=== PATIENT | female | born 1965 | race Caucasian/White ===

== ENCOUNTER → 2016-04-25 | Outpatient (CLI) | payer BC ==
[2016-04-25 13:37] LABS: ALBUMIN 4.1 GM/DL (3.2-5.2); ALBUMIN/GLOBULIN RATIO 1.17 (1.00-1.93); ALKALINE PHOSPHATASE 87 U/L (45-117); ALT/SGPT 158 U/L (12-78); ANION GAP 8 MEQ/L (8-16); AST/SGOT 160 U/L (15-37); BILIRUBIN,TOTAL 0.6 MG/DL (0.2-1.0); BLOOD UREA NITROGEN 14 MG/DL (7-18); CALCIUM LEVEL 9.2 MG/DL (8.5-10.1); CARBON DIOXIDE LEVEL 32 MEQ/L (21-32); CHLORIDE LEVEL 100 MEQ/L (98-107); CHOLESTEROL LEVEL 201 MG/DL (<200); CREATININE FOR GFR 0.79 MG/DL (0.55-1.02); GLOMERULAR FILTRATION RATE > 60.0 (>51); GLUCOSE, FASTING 161 MG/DL (70-105); MAGNESIUM LEVEL 2.1 MG/DL (1.8-2.4); POTASSIUM SERUM 4.7 MEQ/L (3.5-5.1); SODIUM LEVEL 140 MEQ/L (136-145); TOTAL PROTEIN 7.6 GM/DL (6.4-8.2); TRIGLYCERIDES LEVEL 541 MG/DL (<150)
== END ==
LOC: M SMT 09:56
PROVIDERS: ATTEND Nurse Practitioner Family
DX: K75.81 Nonalcoholic steatohepatitis (NASH) (principal); E11.9 Type 2 diabetes mellitus without complications; E78.2 Mixed hyperlipidemia; G47.62 Sleep related leg cramps; E55.9 Vitamin D deficiency, unspecified

== ENCOUNTER → 2016-06-29 | Outpatient (CLI) | payer BC ==
--- NOTE | 2016-06-29 11:26 | REP ---
Right upper quadrant sonography: History: Increased liver function studies. Comparison study: April 15, 2015. Findings: Scanning through the right upper quadrant of the abdomen demonstrates a normal sized, thin-walled gallbladder without evidence of stone or polyp. Common bile duct is normal measuring 1.0 cm in greatest diameter. This is unchanged from chest CT study October 29, 2015. It is also unchanged from April 04, 2015 prior sonography. No focal liver lesion is seen. There is diffuse fatty infiltration of the liver. Normal caliber aorta is seen. Liver size is normal. No pancreatic abnormality is observed. No right renal abnormality is seen. There is no evidence of ascites. The right kidney measures 10.4 x 7.5 x 4.6 cm. Impression: Mildly dilated common bile duct unchanged from prior study, otherwise negative right upper quadrant sonography. Signed by Laith Muniz MD 06/29/2016 11:18 A
== END ==
LOC: M RAD 08:53
PROVIDERS: ATTEND Nurse Practitioner Family
DX: K75.81 Nonalcoholic steatohepatitis (NASH) (principal)

== ENCOUNTER → 2016-08-22 | Outpatient (REF) | payer BC ==
[2016-08-22 11:56] LABS: ALBUMIN 4.2 GM/DL (3.2-5.2); ALBUMIN/GLOBULIN RATIO 1.08 (1.00-1.93); ALKALINE PHOSPHATASE 74 U/L (45-117); ALT/SGPT 122 U/L (12-78); ANION GAP 9 MEQ/L (8-16); AST/SGOT 134 U/L (15-37); BILIRUBIN,TOTAL 0.4 MG/DL (0.2-1.0); BLOOD UREA NITROGEN 17 MG/DL (7-18); CALCIUM LEVEL 9.4 MG/DL (8.5-10.1); CARBON DIOXIDE LEVEL 29 MEQ/L (21-32); CHLORIDE LEVEL 100 MEQ/L (98-107); CHOLESTEROL LEVEL 215 MG/DL (<200); CREATININE FOR GFR 0.81 MG/DL (0.55-1.02); GLOMERULAR FILTRATION RATE > 60.0 (>51); GLUCOSE, FASTING 177 MG/DL (70-105); POTASSIUM SERUM 4.5 MEQ/L (3.5-5.1); SODIUM LEVEL 138 MEQ/L (136-145); TOTAL PROTEIN 8.1 GM/DL (6.4-8.2); TRIGLYCERIDES LEVEL 343 MG/DL (<150)
== END ==
LOC: M SFHCLERA 09:12
PROVIDERS: ATTEND Nurse Practitioner Family
DX: E11.65 Type 2 diabetes mellitus with hyperglycemia (principal); E78.2 Mixed hyperlipidemia; E55.9 Vitamin D deficiency, unspecified

== ENCOUNTER → 2016-11-06 | Outpatient (REF) | payer BC ==
[2016-11-06 18:23] LABS: ALBUMIN 4.5 GM/DL (3.2-5.2); ALBUMIN/GLOBULIN RATIO 1.22 (1.00-1.93); ALKALINE PHOSPHATASE 80 U/L (45-117); ALT/SGPT 149 U/L (12-78); ANION GAP 8 MEQ/L (8-16); AST/SGOT 137 U/L (15-37); BILIRUBIN,TOTAL 0.5 MG/DL (0.2-1.0); BLOOD UREA NITROGEN 15 MG/DL (7-18); CALCIUM LEVEL 9.8 MG/DL (8.5-10.1); CARBON DIOXIDE LEVEL 27 MEQ/L (21-32); CHLORIDE LEVEL 102 MEQ/L (98-107); CHOLESTEROL LEVEL 230 MG/DL (<200); CREATININE FOR GFR 0.81 MG/DL (0.55-1.02); GLOMERULAR FILTRATION RATE > 60.0 (>51); GLUCOSE, FASTING 127 MG/DL (70-105); POTASSIUM SERUM 4.4 MEQ/L (3.5-5.1); SODIUM LEVEL 137 MEQ/L (136-145); TOTAL PROTEIN 8.2 GM/DL (6.4-8.2); TRIGLYCERIDES LEVEL 288 MG/DL (<150)
== END ==
LOC: M SFHCLERA 11:13
PROVIDERS: ATTEND Nurse Practitioner Family
DX: E78.2 Mixed hyperlipidemia (principal); E11.65 Type 2 diabetes mellitus with hyperglycemia; R11.0 Nausea

== ENCOUNTER → 2017-03-04 | Outpatient (CLI) | payer BC ==
[2017-03-04 19:08] LABS: ALBUMIN 4.2 GM/DL (3.2-5.2); ALBUMIN/GLOBULIN RATIO 1.14 (1.00-1.93); ALKALINE PHOSPHATASE 84 U/L (45-117); ALT/SGPT 103 U/L (12-78); ANION GAP 7 MEQ/L (8-16); AST/SGOT 93 U/L (7-37); BILIRUBIN,TOTAL 0.5 MG/DL (0.2-1.0); BLOOD UREA NITROGEN 17 MG/DL (7-18); CALCIUM LEVEL 9.5 MG/DL (8.5-10.1); CARBON DIOXIDE LEVEL 29 MEQ/L (21-32); CHLORIDE LEVEL 104 MEQ/L (98-107); GLOMERULAR FILTRATION RATE > 60.0 (>51); GLUCOSE, FASTING 176 MG/DL (70-105); MAGNESIUM LEVEL 1.6 MG/DL (1.8-2.4); POTASSIUM SERUM 4.7 MEQ/L (3.5-5.1); SODIUM LEVEL 140 MEQ/L (136-145); TOTAL PROTEIN 7.9 GM/DL (6.4-8.2)
== END ==
LOC: M WUC 09:54
PROVIDERS: ATTEND Nurse Practitioner Family
DX: E11.65 Type 2 diabetes mellitus with hyperglycemia (principal); K21.9 Gastro-esophageal reflux disease without esophagitis; E55.9 Vitamin D deficiency, unspecified

== ENCOUNTER → 2017-03-09 | Outpatient (CLI) | payer BC ==
--- NOTE | 2017-03-11 10:55 | REP ---
Clinical: Acute bronchitis . Comparison: 08/23/2015 . Technique: PA and lateral. Findings: The mediastinum and cardiac silhouette are normal. The lung galvez are clear and without acute consolidation, effusion, or pneumothorax. The skeletal structures are intact and normal. Impression: No focal consolidation. No acute cardiopulmonary process. Signed by Manuel Diaz MD 03/09/2017 03:04 P
== END ==
LOC: M WUC 14:41
PROVIDERS: ATTEND Nurse Practitioner Family
DX: J40 Bronchitis, not specified as acute or chronic (principal)

== ENCOUNTER → 2017-05-08 | Outpatient (CLI) | payer BC | LOC: M RAD 07:29 | DX: K75.81 Nonalcoholic steatohepatitis (NASH) (principal) ==

== ENCOUNTER → 2017-06-24 | Outpatient (CLI) | payer BC ==
[2017-06-24 18:25] LABS: ESTIMATED AVERAGE GLUCOSE 197 MG/DL (60-110); HEMOGLOBIN A1c 8.5 %
[2017-06-24 18:43] LABS: ALBUMIN 4.2 GM/DL (3.2-5.2); ALBUMIN/GLOBULIN RATIO 1.17 (1.00-1.93); ALKALINE PHOSPHATASE 84 U/L (45-117); ALT/SGPT 137 U/L (12-78); ANION GAP 9 MEQ/L (8-16); AST/SGOT 93 U/L (7-37); BILIRUBIN,TOTAL 0.6 MG/DL (0.2-1.0); BLOOD UREA NITROGEN 14 MG/DL (7-18); CALCIUM LEVEL 9.3 MG/DL (8.5-10.1); CARBON DIOXIDE LEVEL 27 MEQ/L (21-32); CHLORIDE LEVEL 105 MEQ/L (98-107); CHOLESTEROL LEVEL 217 MG/DL (<200); CHOLESTEROL RISK RATIO 6.027 (<5); CREATININE FOR GFR 0.75 MG/DL (0.55-1.30); GLOMERULAR FILTRATION RATE > 60.0 (>51); GLUCOSE, FASTING 113 MG/DL (70-100); HDL CHOLESTEROL 36 MG/DL (>40); LDL CHOLESTEROL 131.2 MG/DL (<100); NON-HDL-C 181 MG/DL; POTASSIUM SERUM 4.3 MEQ/L (3.5-5.1); SODIUM LEVEL 141 MEQ/L (136-145); TOTAL PROTEIN 7.8 GM/DL (6.4-8.2); TRIGLYCERIDES LEVEL 249 MG/DL (<150)
[2017-06-25 10:43] LABS: TOTAL 25(OH) VITAMIN D 39.3 NG/ML (30.0-100.0)
[2017-06-26 10:58] LABS: ALPHA FETOPROTEIN TUMOR QUANT 2.1 NG/ML (<8.1)
== END ==
LOC: M WUC 12:48
DX: K75.81 Nonalcoholic steatohepatitis (NASH) (principal); L25.9 Unspecified contact dermatitis, unspecified cause; E11.65 Type 2 diabetes mellitus with hyperglycemia

== ENCOUNTER → 2017-10-24 | Outpatient (REF) | payer BC ==
[2017-10-30 12:09] LABS: HPV LOW VOL RFLX Negative (Negative)
== END ==
LOC: M SFHCPLAZ 08:19
DX: Z12.72 Encounter for screening for malignant neoplasm of vagina (principal); Z12.11 Encounter for screening for malignant neoplasm of colon; Z12.4 Encounter for screening for malignant neoplasm of cervix; Z87.410 Personal history of cervical dysplasia
CPT/HCPCS: G0123

== ENCOUNTER → 2017-11-14 | Outpatient (CLI) | payer BC ==
[2017-11-14 09:41] LABS: ALBUMIN/GLOBULIN RATIO 1.11 (1.00-1.93); ALKALINE PHOSPHATASE 74 U/L (45-117); ALT/SGPT 36 U/L (12-78); ANION GAP 8 MEQ/L (8-16); AST/SGOT 29 U/L (7-37); BILIRUBIN,TOTAL 0.4 MG/DL (0.2-1.0); BLOOD UREA NITROGEN 14 MG/DL (7-18); CALCIUM LEVEL 9.2 MG/DL (8.5-10.1); CARBON DIOXIDE LEVEL 30 MEQ/L (21-32); CHLORIDE LEVEL 105 MEQ/L (98-107); CHOLESTEROL LEVEL 186 MG/DL (<200); CHOLESTEROL RISK RATIO 4.227 (<5); CREATININE FOR GFR 0.78 MG/DL (0.55-1.30); FREE T4 1.05 NG/DL (0.76-1.46); GLOMERULAR FILTRATION RATE > 60.0 (>51); GLUCOSE, FASTING 114 MG/DL (70-100); HDL CHOLESTEROL 44 MG/DL (>40); LDL CHOLESTEROL 111.4 MG/DL (<100); NON-HDL-C 142 MG/DL; POTASSIUM SERUM 4.5 MEQ/L (3.5-5.1); SODIUM LEVEL 143 MEQ/L (136-145); TOTAL PROTEIN 7.6 GM/DL (6.4-8.2); TRIGLYCERIDES LEVEL 153 MG/DL (<150)
[2017-11-14 09:43] LABS: CREATININE, URINE 71.5 MG/DL; MALB URINE SIEMENS 25.3 MG/L; MAU/CREAT RATIO 35.3 MCG/MG (0.0-30.0)
[2017-11-14 10:01] LABS: TOTAL 25(OH) VITAMIN D 42.9 NG/ML (30.0-100.0)
[2017-11-14 10:10] LABS: ESTIMATED AVERAGE GLUCOSE 126 MG/DL (60-110)
== END ==
LOC: M LAB 08:37
DX: E11.65 Type 2 diabetes mellitus with hyperglycemia (principal); K75.81 Nonalcoholic steatohepatitis (NASH); E78.5 Hyperlipidemia, unspecified; E55.9 Vitamin D deficiency, unspecified
CPT/HCPCS: 84443

== ENCOUNTER → 2018-01-14 | Outpatient (REF) | payer BC | LOC: M LAB REF 19:08 | DX: D22.5 Melanocytic nevi of trunk (principal) | CPT/HCPCS: 88305 ==

== ENCOUNTER → 2018-01-24 | Outpatient (CLI) | payer BC | LOC: M RAD 16:39 | DX: Z12.31 Encounter for screening mammogram for malignant neoplasm of breast (principal); N60.31 Fibrosclerosis of right breast; N60.32 Fibrosclerosis of left breast; R92.8 Other abnormal and inconclusive findings on diagnostic imaging of breast | CPT/HCPCS: 77067 ==

== ENCOUNTER → 2018-02-04 | Outpatient (CLI) | payer BC | LOC: M RAD 15:52 | DX: R92.8 Other abnormal and inconclusive findings on diagnostic imaging of breast (principal) | CPT/HCPCS: 77065 ==

== ENCOUNTER → 2018-03-24 | Outpatient (CLI) | payer BC ==
[2018-03-24 18:05] LABS: ALBUMIN 3.9 GM/DL (3.2-5.2); ALBUMIN/GLOBULIN RATIO 1.05 (1.00-1.93); ALKALINE PHOSPHATASE 80 U/L (45-117); ALT/SGPT 35 U/L (12-78); ANION GAP 9 MEQ/L (8-16); AST/SGOT 28 U/L (7-37); BILIRUBIN,TOTAL 0.3 MG/DL (0.2-1.0); BLOOD UREA NITROGEN 19 MG/DL (7-18); CALCIUM LEVEL 8.7 MG/DL (8.5-10.1); CARBON DIOXIDE LEVEL 26 MEQ/L (21-32); CHLORIDE LEVEL 107 MEQ/L (98-107); CHOLESTEROL LEVEL 190 MG/DL (<200); CHOLESTEROL RISK RATIO 5.135 (<5); CREATININE FOR GFR 0.69 MG/DL (0.55-1.30); GLOMERULAR FILTRATION RATE > 60.0 (>51); GLUCOSE, FASTING 83 MG/DL (70-100); HDL CHOLESTEROL 37 MG/DL (>40); LDL CHOLESTEROL 125 MG/DL (<100); NON-HDL-C 153 MG/DL; POTASSIUM SERUM 4.5 MEQ/L (3.5-5.1); SODIUM LEVEL 142 MEQ/L (136-145); TOTAL PROTEIN 7.6 GM/DL (6.4-8.2); TRIGLYCERIDES LEVEL 140 MG/DL (<150)
[2018-03-24 18:13] LABS: ESTIMATED AVERAGE GLUCOSE 131 MG/DL (60-110); HEMOGLOBIN A1c 6.2 %
[2018-03-24 18:22] LABS: MALB URINE SIEMENS 55.1 MG/L; MAU/CREAT RATIO 41.4 MCG/MG (0.0-30.0)
== END ==
LOC: M WUC 11:24
DX: E11.29 Type 2 diabetes mellitus with other diabetic kidney complication (principal); E78.2 Mixed hyperlipidemia; E55.9 Vitamin D deficiency, unspecified
CPT/HCPCS: 80053

== ENCOUNTER → 2018-04-22 | Outpatient (CLI) | payer BC ==
--- NOTE | 2018-04-23 04:15 | REP ---
Clinical: Cirrhosis. Comparison: 05/08/2017, 06/29/2016 Technique: Wharton scale ultrasound using curved array transducer. Findings: The liver is mildly enlarged and demonstrates increased echotexture consistent with fatty infiltration. No focal hepatic lesion identified. Main portal vein is mildly dilated at 15.7 mm diameter. Pancreas is normal in appearance and echogenicity. The gallbladder again demonstrates few septations without gallstones, wall thickening, or pericholecystic fluid. Common bile duct measures 10.6 mm maximal diameter but tapers to 6.9 mm at the head of the pancreas and is without obvious obstruction. The right kidney is normal in reniform shape without hydronephrosis and measures 12.6 x 6.8 x 5.3 cm. No ascites. Impression: 1. Hepatomegaly with hepatic steatosis. No focal hepatic lesion. 2. Mild portal vein dilatation. 3. Common bile duct again appears mildly dilated but tapers smoothly and is without evidence for obstruction. Electronically Signed by Manuel Diaz MD 04/23/2018 04:06 A
== END ==
LOC: M RAD 07:02
PROVIDERS: ATTEND Nurse Practitioner Family
DX: K74.60 Unspecified cirrhosis of liver (principal)

== ENCOUNTER → 2018-08-19 | Outpatient (REF) | payer BC ==
[2018-08-19 10:06] LABS: ALBUMIN 4.2 GM/DL (3.2-5.2); ALT/SGPT 57 U/L (12-78); BILIRUBIN,TOTAL 0.3 MG/DL (0.2-1.0); BLOOD UREA NITROGEN 16 MG/DL (7-18); CALCIUM LEVEL 8.9 MG/DL (8.5-10.1); CARBON DIOXIDE LEVEL 27 MEQ/L (21-32); CHLORIDE LEVEL 108 MEQ/L (98-107); CREATININE FOR GFR 0.92 MG/DL (0.55-1.30); GLOMERULAR FILTRATION RATE > 60.0 (>51); GLUCOSE, FASTING 145 MG/DL (70-100); POTASSIUM SERUM 4.2 MEQ/L (3.5-5.1); SODIUM LEVEL 141 MEQ/L (136-145); TOTAL PROTEIN 7.7 GM/DL (6.4-8.2)
[2018-08-19 10:46] LABS: HEMOGLOBIN A1c 6.4 %
[2018-08-19 11:01] LABS: CREATININE, URINE 75.8 MG/DL; MALB URINE SIEMENS 5.4 MG/L; MAU/CREAT RATIO 7.1 MCG/MG (0.0-30.0)
== END ==
LOC: M LAB REF 09:14
PROVIDERS: ATTEND Nurse Practitioner Family
DX: E11.29 Type 2 diabetes mellitus with other diabetic kidney complication (principal); J84.9 Interstitial pulmonary disease, unspecified; K74.60 Unspecified cirrhosis of liver

== ENCOUNTER → 2018-09-27 | Outpatient (CLI) | payer BC ==
--- NOTE | 2018-09-27 14:11 | REP ---
LOW DOSE LUNG SCREENING CT: Low dose lung screening CT exam is performed without the use of intravenous contrast in the axial plane. Comparison is made with a prior CT of the chest 10/29/2015. In the right upper lobe, on images 25 through 28, there is an ill-defined nonsolid parenchymal opacity with central lucency. Maximum diameter is 20 mm. This is probably benign and likely related to an inflammatory and/or fibrotic process. More inferiorly, in the right lower lobe, there is mild focal chronic scarring which is stable compared to the prior CT of the chest. This is seen on image 67. Another area of focal parenchymal scarring is seen in the left lower lobe on image 59, also stable. No other new abnormal nodular opacities are seen bilaterally. The heart is normal in size. There is no pleural effusion. No mediastinal contour abnormality is seen. There are degenerative changes of the spine. IMPRESSION: Lung RADS category 3 probably benign finding. In the right upper lobe, there is new ill-defined somewhat ground-glass parenchymal opacity with central lucency with a maximum diameter of 20 mm. This is likely related to an inflammatory and/or fibrotic process. Recommend followup CT in 6 months. Focal scarring in the right lower lobe and left lower lobe as discussed above is stable compared to the prior CT of 10/29/2015. Electronically Signed by Dewayne Wharton MD 09/27/2018 07:31 P
== END ==
LOC: M RAD 10:39
PROVIDERS: ATTEND Nurse Practitioner Family
DX: R91.8 Other nonspecific abnormal finding of lung field (principal); Z87.891 Personal history of nicotine dependence

== ENCOUNTER → 2018-12-13 | Outpatient (CLI) | payer BC ==
--- NOTE | 2018-12-13 09:25 | REP ---
CT chest without contrast: History: Abnormal lung field finding. Comparison chest CT studies are reviewed the most recent which is from September 27, 2018 and the most remote is dated June 29, 2008. CT findings: Preliminary digital shopper insights manager views are unremarkable. There are multiple scattered ground-glass opacities bilaterally. In the left upper lobe there is a 1 cm ground-glass opacity near the apex which it is unchanged from October 29, 2015. In the right upper lobe on page 30 of 111 in series 201 of the study there is a 22 mm ground-glass opacity with central airspace a radiolucency. This it is new when compared with 2016 prior study and may be slightly larger today compared to the September 27, 2018 study. Low grade malignancy cannot be excluded. Just posterior and inferior to this on page 33 of 111 there is a 1 cm ground-glass opacity which is visible in retrospect in September and probably on the 2015 prior study as well. There is a new 9 mm air cyst in the right middle lobe on page 57. There is a ground-glass opacity in the left lower lobe on page 59 of 111. This measures 16 mm in diameter and it is unchanged from the October 29, 2015 prior study. It was not present in 2008. It is visible in the left lower lobe on July 2009 and has increased slightly since then. There are two adjacent subcentimeter nodules in the right lower lobe on page 71 of 111. These appear to be unchanged from September 27, 2018. Lastly there is stable 3 mm nodule in the left lower lobe posterolaterally on page 80 which is unchanged from 2016. There is no evidence of hilar or mediastinal mass or adenopathy. There is some vascular calcification. No adrenal lesion is seen. No bony destructive lesion is observed. Impression: Multiple scattered ground glass opacities, two of which appear to be gradually increasing in size; right upper lobe and left lower lobe. Low grade adenocarcinoma cannot be excluded. The largest of these is in the right upper lobe 2.2 cm in greatest diameter. Electronically Signed by Laith Muniz MD 12/13/2018 03:59 P
== END ==
LOC: M RAD 07:08
PROVIDERS: ATTEND Internal Medicine Pulmonary Disease
DX: R91.8 Other nonspecific abnormal finding of lung field (principal)

== ENCOUNTER → 2019-01-04 | Outpatient (CLI) | payer BC ==
[2019-01-04 18:46] LABS: ALBUMIN 4.2 GM/DL (3.2-5.2); ALT/SGPT 63 U/L (12-78); BILIRUBIN,TOTAL 0.5 MG/DL (0.2-1.0); BLOOD UREA NITROGEN 17 MG/DL (7-18); CALCIUM LEVEL 9.3 MG/DL (8.5-10.1); CARBON DIOXIDE LEVEL 27 MEQ/L (21-32); CHLORIDE LEVEL 104 MEQ/L (98-107); CHOLESTEROL LEVEL 187 MG/DL (<200); CHOLESTEROL RISK RATIO 5.054 (<5); CREATININE FOR GFR 0.77 MG/DL (0.55-1.30); GLOMERULAR FILTRATION RATE > 60.0 (>51); GLUCOSE, FASTING 73 MG/DL (70-100); HDL CHOLESTEROL 37 MG/DL (>40); LDL CHOLESTEROL 121 MG/DL (<100); NON-HDL-C 150 MG/DL; POTASSIUM SERUM 4.3 MEQ/L (3.5-5.1); SODIUM LEVEL 140 MEQ/L (136-145); TRIGLYCERIDES LEVEL 144 MG/DL (<150)
[2019-01-04 18:59] LABS: HEMOGLOBIN A1c 5.8 %
[2019-01-04 19:13] LABS: MAU/CREAT RATIO 14.3 MCG/MG (0.0-30.0)
[2019-01-06 09:58] LABS: TOTAL 25(OH) VITAMIN D 36.4 NG/ML (30.0-100.0)
== END ==
LOC: M WUC 13:04
PROVIDERS: ATTEND Nurse Practitioner Family
DX: E11.29 Type 2 diabetes mellitus with other diabetic kidney complication (principal); E78.2 Mixed hyperlipidemia; E55.9 Vitamin D deficiency, unspecified; N18.9 Chronic kidney disease, unspecified

== ENCOUNTER → 2019-02-10 | Outpatient (REF) | payer BC | LOC: M SFHCPLAZ 10:53 | PROVIDERS: ATTEND Dermatology | DX: D49.2 Neoplasm of unspecified behavior of bone, soft tissue, and skin (principal) ==

== ENCOUNTER → 2019-04-23 | Outpatient (CLI) | payer BC ==
--- NOTE | 2019-04-23 08:12 | REP ---
Clinical: Nonalcoholic hepatic steatosis. Technique: Real time pinedo scale and color evaluation using curved array transducer. Comparison: 04/22/2018. Findings: The liver is enlarged and measures 20 cm in craniocaudal length and appears hyperechoic consistent with fatty infiltration. No focal hepatic lesion is identified. There is an area of fatty sparing adjacent to the gallbladder fossa. The main portal vein is upper limits of normal at 15 mm diameter. The pancreas is incompletely evaluated due to interposed bowel gas but visualized portions appear normal. The gallbladder is unremarkable and without gallstones, wall thickening, or pericholecystic fluid. The common bile duct is again mildly dilated to 11 mm without obvious obstructing cause. The right kidney is normal in reniform shape without hydronephrosis and measures 13.1 x 4.7 x 3.5 cm. No ascites in the visualized right upper quadrant. Impression: 1. Hepatomegaly and hepatic steatosis. 2. Mild common bile duct dilatation without obstructing cause and essentially unchanged when compared to prior examination. Electronically Signed by Manuel Diaz MD 04/23/2019 08:03 A
== END ==
LOC: M RAD 07:10
PROVIDERS: ATTEND Nurse Practitioner Family
DX: K75.81 Nonalcoholic steatohepatitis (NASH) (principal)

== ENCOUNTER → 2019-05-29 | Outpatient (CLI) | payer BC ==
--- NOTE | 2019-05-29 08:18 | REP ---
Clinical: Follow up abnormal lung findings. Technique: Axial noncontrast images from the thoracic inlet to the upper abdomen with coronal and sagittal re-formations. Comparison: 12/13/2018, 09/27/2018, 10/29/2015 Findings: The 1.4 cm cavitation with subtle surrounding ground-glass halo in the right upper lobe and small area of ground-glass opacity in the medial left lower lobe are unchanged. No new acute pulmonary parenchymal process identified. No significant adenopathy. No effusion. No pneumothorax. Tracheobronchial tree is patent. Mediastinum demonstrates relatively normal thoracic aorta, pulmonary vasculature and heart/pericardium. Thyroid gland is unremarkable. Musculoskeletal structures are intact. Impression: 1. The right upper lobe cavitary lesion with surrounding ground-glass halo remains stable through 09/27/2018, and the subtle ground-glass opacity in the left lower lobe remains stable through 10/29/2015. Findings likely represent sequelae of prior infectious process. Consider 9 - 12-month follow-up to confirm stability. Electronically Signed by Manuel Diaz MD 05/29/2019 08:09 A
== END ==
LOC: M RAD 07:31
PROVIDERS: ATTEND Internal Medicine Pulmonary Disease
DX: R91.8 Other nonspecific abnormal finding of lung field (principal)

== ENCOUNTER → 2019-10-04 | Outpatient (CLI) | payer BC ==
[2019-10-04 14:33] LABS: ALT/SGPT 57 U/L (12-78); BILIRUBIN,TOTAL 0.3 MG/DL (0.2-1.0); BLOOD UREA NITROGEN 22 MG/DL (7-18); CALCIUM LEVEL 9.2 MG/DL (8.5-10.1); CARBON DIOXIDE LEVEL 27 MEQ/L (21-32); CHLORIDE LEVEL 106 MEQ/L (98-107); CHOLESTEROL LEVEL 175 MG/DL (<200); CHOLESTEROL RISK RATIO 5.645 (<5); CREATININE FOR GFR 0.84 MG/DL (0.55-1.30); GLOMERULAR FILTRATION RATE > 60.0 (>51); GLUCOSE, FASTING 86 MG/DL (70-100); HDL CHOLESTEROL 31 MG/DL (>40); LDL CHOLESTEROL 101 MG/DL (<100); NON-HDL-C 144 MG/DL; POTASSIUM SERUM 4.7 MEQ/L (3.5-5.1); SODIUM LEVEL 142 MEQ/L (136-145); TOTAL PROTEIN 7.6 GM/DL (6.4-8.2); TRIGLYCERIDES LEVEL 217 MG/DL (<150); URIC ACID 8.7 MG/DL (2.6-6.0)
[2019-10-04 14:39] LABS: CREATININE, URINE 80.4 MG/DL; MALB URINE SIEMENS 12.7 MG/L; MAU/CREAT RATIO 15.7 MCG/MG (0.0-30.0)
[2019-10-04 14:52] LABS: HEMOGLOBIN A1c 5.8 %
[2019-10-06 10:56] LABS: TOTAL 25(OH) VITAMIN D 50.2 NG/ML (30.0-100.0); VITAMIN B12 LEVEL 295 PG/ML
[2019-10-06 11:27] LABS: FOLATE 23.8 NG/ML
== END ==
LOC: M WUC 08:26
PROVIDERS: ATTEND Nurse Practitioner Family
DX: E11.29 Type 2 diabetes mellitus with other diabetic kidney complication (principal); K75.81 Nonalcoholic steatohepatitis (NASH); K21.9 Gastro-esophageal reflux disease without esophagitis; E55.9 Vitamin D deficiency, unspecified; M25.50 Pain in unspecified joint

== ENCOUNTER 2019-11-14 14:42 | Day surgery (SDC) | payer BC ==
[~2019-11-14 14:42] MED LIST: LIDOCAINE 2% 100MG/5ML SDV (FOR ANES.) As Ordered ONE; fentaNYL 100 MCG/2 ML INJECTION (J3010) As Ordered ONE; propofoL 200 MG/20 ML VIAL As Ordered ONE
[2019-11-14] MEDS ORDERED: propofoL 200 MG/20 ML VIAL As Ordered ONE (15:59)
[2019-11-14] MEDS ORDERED: PHENYLephrine HCL 500 MCG/5 ML (100MCG/ML) SYRINGE (J2370) As Ordered ONE (16:04)
--- NOTE | 2019-12-24 11:27 | ROOR ---
Patient Name: Sandy Hoyt Procedure Date: 11/14/2019 2:03 PM Date of : 1965 Age: 54 Room: [facility] Gender: Female Note Status: Finalized Procedure: Colonoscopy Indications: High risk colon cancer surveillance: Personal history of colonic polyps Providers: Gurinder GARBER MD Referring MD: Grace Mock NP Requesting Provider: Medicines: Monitored Anesthesia Care Complications: No immediate complications. Procedure: Pre-Anesthesia Assessment: - The heart rate, respiratory rate, oxygen saturations, blood pressure, adequacy of pulmonary ventilation, and response to care were monitored throughout the procedure. The Colonoscope was introduced through the anus and advanced to the cecum, identified by appendiceal orifice and ileocecal valve. The colonoscopy was performed without difficulty. The patient tolerated the procedure well. The quality of the bowel preparation was good. Findings: The perianal and digital rectal examinations were normal. Two sessile polyps were found in the splenic flexure and ascending colon. The polyps were diminutive in size. These polyps were removed with a cold snare. Resection and retrieval were complete. Non-bleeding internal hemorrhoids were found during retroflexion. The hemorrhoids were moderate. The exam was otherwise without abnormality on direct and retroflexion views. Impression: - Two diminutive polyps at the splenic flexure and in the ascending colon, removed with a cold snare. Resected and retrieved. - Non-bleeding internal hemorrhoids. - The examination was otherwise normal on direct and retroflexion views. Recommendation: - If the pathology report reveals adenomatous tissue, then repeat the colonoscopy for surveillance in 5 years. - Telephone endoscopist for pathology results in 2 weeks. Gurinder Garber MD Gurinder GARBER MD 11/14/2019 4:18:50 PM Electronically signed by Gurinder GARBER MD Number of Addenda: 0 Note Initiated On: 11/14/2019 2:03 PM Estimated Blood Loss: Estimated blood loss: none.
== END 2019-11-14 16:45 | disposition home or self-care (01) ==
LOC: M OPP 14:42
PROVIDERS: ATTEND Internal Medicine Gastroenterology
DX: Z12.11 Encounter for screening for malignant neoplasm of colon (principal); Z86.010 Personal history of colon polyps; Z80.0 Family history of malignant neoplasm of digestive organs; K63.5 Polyp of colon; K64.8 Other hemorrhoids; K29.70 Gastritis, unspecified, without bleeding; K31.7 Polyp of stomach and duodenum; R10.11 Right upper quadrant pain; R12 Heartburn; E11.9 Type 2 diabetes mellitus without complications; Z79.82 Long term (current) use of aspirin; Z79.84 Long term (current) use of oral hypoglycemic drugs; Z79.899 Other long term (current) drug therapy; Z88.1 Allergy status to other antibiotic agents; Z88.8 Allergy status to other drugs, medicaments and biological substances
CPT/HCPCS: 43239; 43251; 45385; 88305; J2370; J3010

== ENCOUNTER → 2019-11-21 | Outpatient (REF) | payer BC ==
[2019-12-20 03:12] LABS: INR 0.98; PLATELET COUNT, AUTOMATED 208 10^3/uL (150-450); PROTHROMBIN TIME 13.2 SECONDS (11.8-14.0)
[2019-12-29 09:14] LABS: ANTI-MITOCHONDRIAL ANTIBODY SEE SEPARATE REPORT; ANTI-SMOOTH MUSCLE ANTIBODY SEE SEPARATE REPORT; ANTINUCLEAR ANTIBODIES DIRECT See Separate Report; CYTOPLASMIC NEUTROP AB ANCA-C SEE SEPARATE REPORT; LIVER-KIDNEY MICROSOMAL ABY SEE SEPARATE REPORT
[2020-01-05 21:36] LABS: HEPATITIS A ANTIBODY IGM NEGATIVE (NEGATIVE); HEPATITIS B CORE ANTIBODY IGM NEGATIVE (NEGATIVE); HEPATITIS B SURFACE ANTIGEN NEGATIVE (NEGATIVE); HEPATITIS C VIRUS ABY INDEX 0.2 INDEX (<0.8)
== END ==
LOC: M LABWUC 07:57
PROVIDERS: ATTEND Internal Medicine Gastroenterology
DX: Z86.010 Personal history of colon polyps (principal)

== ENCOUNTER → 2019-11-24 | Outpatient (CLI) | payer BC ==
[~2019-11-24] MED LIST changes: +LIDOCAINE 1% MDV 20ML VIAL As Ordered ONE; -LIDOCAINE 2% 100MG/5ML SDV (FOR ANES.) As Ordered ONE; +SODIUM BICARBONATE 8.4% INJ 50MEQ 50 ML VIAL As Ordered ONE; -fentaNYL 100 MCG/2 ML INJECTION (J3010) As Ordered ONE; -propofoL 200 MG/20 ML VIAL As Ordered ONE
--- NOTE | 2020-01-07 09:49 | REP ---
The procedure was performed by YNES Aguilar under the direct supervision of Dr. Wharton. The risks and benefits of the procedure were explained to the patient and informed consent was obtained. Prior to the start of the procedure, a time-out was done and consent was then obtained orally as well. The left lobe of the liver was localized using ultrasound guidance. The skin was prepped and draped in a sterile fashion. 15 mL of buffered Lidocaine was used as a local anesthetic. Using ultrasound guidance, a 19-20 gauge coaxial needle biopsy system was inserted and advanced into the liver. Six core biopsy samples were obtained and sent to the lab for further analysis. The patient tolerated the procedure well and there were no immediate complications. After the appropriate amount of monitored convalescence, the patient was discharged from the department [facility]
== END ==
LOC: M IRPRO 10:00
PROVIDERS: ATTEND Internal Medicine Gastroenterology
DX: K75.81 Nonalcoholic steatohepatitis (NASH) (principal); K76.0 Fatty (change of) liver, not elsewhere classified

== ENCOUNTER → 2020-03-23 | Outpatient (CLI) | payer BC ==
[2020-03-23 09:19] LABS: ALT/SGPT 32 U/L (12-78); BILIRUBIN,TOTAL 0.3 MG/DL (0.2-1.0); BLOOD UREA NITROGEN 14 MG/DL (7-18); CALCIUM LEVEL 9.6 MG/DL (8.5-10.1); CARBON DIOXIDE LEVEL 28 MEQ/L (21-32); CHLORIDE LEVEL 106 MEQ/L (98-107); CHOLESTEROL LEVEL 173 MG/DL (<200); CHOLESTEROL RISK RATIO 4.435 (<5); CREATININE FOR GFR 0.82 MG/DL (0.55-1.30); GLOMERULAR FILTRATION RATE > 60.0 (>51); GLUCOSE, FASTING 103 MG/DL (70-100); HDL CHOLESTEROL 39 MG/DL (>40); LDL CHOLESTEROL 108 MG/DL (<100); NON-HDL-C 134 MG/DL; POTASSIUM SERUM 4.5 MEQ/L (3.5-5.1); SODIUM LEVEL 140 MEQ/L (136-145); TOTAL PROTEIN 7.6 GM/DL (6.4-8.2); TRIGLYCERIDES LEVEL 130 MG/DL (<150)
[2020-03-23 09:22] LABS: TOTAL 25(OH) VITAMIN D 40.5 NG/ML (30.0-100.0)
[2020-03-24 16:58] LABS: URIC ACID 4.7 MG/DL (2.6-6.0)
== END ==
LOC: M LAB 07:20
PROVIDERS: ATTEND Nurse Practitioner Family
DX: E78.2 Mixed hyperlipidemia (principal); E11.9 Type 2 diabetes mellitus without complications; E55.9 Vitamin D deficiency, unspecified; M10.9 Gout, unspecified

== ENCOUNTER → 2020-04-14 | Outpatient (CLI) | payer BC ==
--- NOTE | 2020-04-14 12:26 | REPMRS ---
Patient History The patient states she had a clinical breast exam in October 2019. Family history of breast cancer at age 50 or over in maternal aunt. Digital Woman Screen Mammo: April 14, 2020 - Exam #: [id number] Bilateral CC and MLO view(s) were taken. Technologist: Lisa Gerber, Technologist Prior study comparison: February 04, 2018, left breast digital mammo diagnostic unilateral, performed at [facility]. January 24, 2018, bilateral digital mammo screening bilat, performed at [facility]. April 15, 2015, digital mammo diagnostic bilateral, performed at [facility]. FINDINGS: There are scattered fibroglandular densities. The Volpara volumetric breast density category is:B. There is a possible grouping of new microcalcifications in the central right breast. These merit further evaluation. There has been no other change in the appearance of the mammogram from the prior studies. There is a mild amount of scattered fibroglandular density which is fairly symmetric. There is no other interval development of dominant mass, architectural distortion, or grouped microcalcification suggestive of malignancy. 3-D tomosynthesis shows no additional findings. Assessment: BI-RADS/ACR category 0 mammogram, Incomplete: Need additional imaging evaluation and/or prior mammograms for comparison. Recommendation Special view mammogram of the right breast. This patient's [facility] Lifetime Breast Cancer Risk is estimated at 12.3 %. This mammogram was interpreted with the aid of an FDA-approved computer-aided dectection system. Electronically Signed By: Ish Muniz MD 04/14/20 0151
== END ==
LOC: M WHC 11:18
PROVIDERS: ATTEND Nurse Practitioner Family
DX: R92.2 Inconclusive mammogram (principal)

== ENCOUNTER → 2020-05-11 | Outpatient (CLI) | payer BC ==
[2020-05-11 18:15] LABS: BLOOD UREA NITROGEN 16 MG/DL (7-18); CALCIUM LEVEL 9.6 MG/DL (8.5-10.1); CARBON DIOXIDE LEVEL 30 MEQ/L (21-32); CHLORIDE LEVEL 103 MEQ/L (98-107); CREATININE FOR GFR 0.75 MG/DL (0.55-1.30); GLOMERULAR FILTRATION RATE > 60.0 (>51); GLUCOSE, FASTING 101 MG/DL (70-100); POTASSIUM SERUM 3.9 MEQ/L (3.5-5.1); SODIUM LEVEL 140 MEQ/L (136-145)
== END ==
LOC: M LAB 16:54
PROVIDERS: ATTEND Surgery
DX: R92.1 Mammographic calcification found on diagnostic imaging of breast (principal)

== ENCOUNTER → 2020-05-14 | Outpatient (CLI) | payer BC ==
[~2020-05-14] MED LIST changes: -LIDOCAINE 1% MDV 20ML VIAL As Ordered ONE; +PROHANCE 279.3MG/ML 15ML VIAL As Ordered ONE; +PROHANCE 279.3MG/ML 5ML VIAL As Ordered ONE; -SODIUM BICARBONATE 8.4% INJ 50MEQ 50 ML VIAL As Ordered ONE
--- NOTE | 2020-05-14 17:39 | REP ---
INDICATION: CALCIFICATION OF RT BREAST ON MAMMOGRAPHY. Microcalcifications seen in the right breast on mammography 5 in April 2020. She has apparently declined stereotactic needle biopsy. MRI to evaluate for suspicious enhancement in the area of the calcifications. COMPARISON: Comparison mammography 20 April 2020 and 04/14/2020. TECHNIQUE: Three Julia MRI imaging was performed with a dedicated breast coil. Axial, coronal, and sagittal T1 and T2 weighted scans were obtained with and without fat saturation in the usual fashion. The study includes dynamically acquired post gadolinium-enhanced imaging with image subtraction. Maximum intensity projection and multi planar reformation imaging is included as well. This study is interpreted with the aid of [employer], an FDA approved computer aided detection (CAD) software program, on a dedicated breast MRI workstation. The gadolinium enhancement dose is 17 mL of intravenous ProHance. FINDINGS: A mild fibroglandular pattern of breast parenchyma is seen there is mild pattern of background parenchymal enhancement. There is no evidence of significant breast cystic change. No axillary lymphadenopathy is observed on either side. Dynamically acquired sequential postcontrast images demonstrate a 9 x 3 mm elongate area of abnormal contrast enhancement in the right central breast, retroareolar, middle to posterior 3rd, approximately 6.5 cm posterior to the nipple. This has ill-defined margins and intense initial enhancement with subsequent acquisition showing washout kinetics. This must be regarded as suspicious. MR imaging can not show microcalcifications however, this area of abnormal enhancement is felt to be in the location of the microcalcifications seen mammographically in the right breast and most likely corresponds to these. No other abnormal area of enhancement and washout is seen on dynamic post-contrast images in either breast. No worrisome skin changes seen. Subtraction images demonstrate the linear area of enhancement described above but no other suspicious finding.. IMPRESSION: BI-RADS category 4 suspicious findings in the right breast. Centrally in the mid the posterior right breast there is a suspicious 9 x 3 mm ill-defined area of enhancement and washout. This most likely corresponds to the area of suspicious microcalcifications seen centrally in the right breast on recent mammography. Histologic sampling is recommended. Since stereotactic needle biopsy generally affords more prior precise targeting than does MR guided needle biopsy, I would suggest stereotactic needle biopsy be performed with marker clip placement. A decision can then be made about repeat contrast enhanced MR scanning with a marker clip in place to confirm concordance with the MR findings. <Electronically signed by Ish Muniz > 05/14/20 [id number]
== END ==
LOC: M RAD 15:24
PROVIDERS: ATTEND Surgery
DX: R92.1 Mammographic calcification found on diagnostic imaging of breast (principal); N63.15 Unspecified lump in the right breast, overlapping quadrants
CPT/HCPCS: A9576; C8908

== ENCOUNTER → 2020-06-03 | Outpatient (CLI) | payer BC ==
--- NOTE | 2020-06-03 15:20 | REP ---
INDICATION: R92.1 RT BREAST CALCIFICATIONS,STEREOTACTIC BIOPSY. COMPARISON: Comparison mammography right breast 20 April 2020.. TECHNIQUE: A single specimen radiograph is presented. FINDINGS: Specimen radiography demonstrates numerous microcalcifications probably representing the entire target grouping distributed in the removed specimens. Microcalcifications are visible in 4 of the 6 specimens. IMPRESSION: There are microcalcifications from the target grouping in the removed specimens. <Electronically signed by Ish Muniz > 06/03/20 [id number]
--- NOTE | 2020-06-03 15:44 | REP ---
INDICATION: R92.1 RT BREAST CALCIFICATIONS,STEREOTACTIC BIOPSY. COMPARISON: None. TECHNIQUE: The procedure was performed under the general supervision of Dr. Muniz. The risks and benefits of the procedure were explained to the patient and informed consent was obtained. The patient's history of a cluster of pleomorphic microcalcifications centrally in the right breast seen on a previous mammogram dated 04/20/2000. A craniocaudal approach was utilized. The calcifications were localized using stereotactic mammographic guidance. 1% Xylocaine was used as a local anesthetic. A 10 gauge, suction assisted Mammotome needle was inserted and 6 core biopsy samples were obtained. Specimen radiograph demonstrates the presence of calcifications to be within the specimen. The marker clip (HydroMARK shape 3) was placed at the biopsy site. The patient tolerated the procedure well and there were no immediate complications. After the appropriate amount of monitored convalescence, the patient was discharged from the department. FINDINGS: None IMPRESSION: Stereotactic right breast biopsy with marker clip placement (HydroMARK shape 3) <Electronically signed by Josue Hale > 06/03/20 [id number] <Electronically signed by Ish Muniz > 06/03/20 [id number]
--- NOTE | 2020-06-03 15:56 | REP ---
INDICATION: R92.1 RT BREAST CALCIFICATIONS,POST STEREOTACTIC BIOPSY. Marker clip placement views. COMPARISON: Comparison mammography 20 April 2020. TECHNIQUE: Craniocaudal and mediolateral oblique views of the right breast are obtained. FINDINGS: Cc and true mediolateral views of the right breast demonstrate the marker clip in good position at the position where prior mammography showed a micro calcific grouping. The micro calcific target is not visible on the current radiographs and may have been removed. IMPRESSION: Marker clip in good position. <Electronically signed by Ish Muniz > 06/03/20 [id number]
[2020-06-03 16:21] VITALS: BP 125/74
== END ==
LOC: M WHCPRO 13:41
PROVIDERS: ATTEND Surgery
DX: D05.11 Intraductal carcinoma in situ of right breast (principal)

== ENCOUNTER → 2020-06-11 | Outpatient (CLI) | payer BC | LOC: M PLALAB 08:52 | PROVIDERS: ATTEND Surgery | DX: Z13.79 Encounter for other screening for genetic and chromosomal anomalies (principal) ==

== ENCOUNTER → 2020-06-18 | Outpatient (CLI) | payer BC ==
--- NOTE | 2020-06-18 08:20 | REP ---
INDICATION: ABN FINDINGS OF LUNG FIELD COMPARISON: 05/29/2019, 12/13/2018. TECHNIQUE: Axial noncontrast images from the thoracic inlet to the upper abdomen with coronal and sagittal reformations. This CT examination was performed using the following dose reduction techniques: Automated exposure control, adjustment of mA and/or kv according to the patient's size, and use of iterative reconstruction technique. FINDINGS: The cavitary lesion in the right upper lobe with surrounding ground-glass rim and subtle internal septation is minimally increased in diameter, but essentially unchanged in morphology and without increased solid component. A 2nd similar ground-glass non solid lesion along the medial left lower lobe without central cavitary component has a similar morphology and is again relatively unchanged when compared with 05/29/2019 and 12/13/2018. Remainder of lung galvez are relatively well aerated and without further consolidation, suspicious nodule or mass. No effusion. No pneumothorax. Tracheobronchial tree is patent. The mediastinum demonstrates stable atherosclerotic changes to the thoracic aorta and coronary arteries without aortic aneurysm or cardiomegaly. No pericardial effusion. No axillary, hilar, or mediastinal adenopathy. Surrounding musculoskeletal structures demonstrate degenerative changes without acute osseous abnormality. IMPRESSION: 1. Right upper lobe lesion and left lower lobe lesion having essentially unchanged morphology as compared through 12/13/2018. Findings may represent sequelae from prior infectious process. 2. No acute mediastinal or pleuroparenchymal process. No lesion or abnormality identified. <Electronically signed by Manuel Diaz > 06/18/20 [id number]
== END ==
LOC: M RAD 07:11
PROVIDERS: ATTEND Internal Medicine Pulmonary Disease
DX: R91.8 Other nonspecific abnormal finding of lung field (principal)

== ENCOUNTER → 2020-06-22 | Outpatient (REF) | payer BC ==
[~2020-06-22] MED LIST changes: +ASPI81TA26 PO; +BENA25CA4 PO; +COLA100C5 PO; +GLIP5TAB20 PO; +GNP1000T11 PO; +LOPI600T PO; +LOSA50TA88 PO; +MAGN400C2 PO; +METF10004 PO; +PANT20TA6 PO; -PROHANCE 279.3MG/ML 15ML VIAL As Ordered ONE; -PROHANCE 279.3MG/ML 5ML VIAL As Ordered ONE; +QVAR40AE12 INH; +TRUL0.5I SC; +VITA50005 PO; +ZOFR4TAB16 PO; +ZYLO300T6 PO
[2020-06-22 16:12] LABS: BLOOD UREA NITROGEN 15 MG/DL (7-18); CALCIUM LEVEL 9.9 MG/DL (8.5-10.1); CARBON DIOXIDE LEVEL 28 MEQ/L (21-32); CHLORIDE LEVEL 106 MEQ/L (98-107); CREATININE FOR GFR 0.72 MG/DL (0.55-1.30); GLOMERULAR FILTRATION RATE > 60.0 (>51); GLUCOSE, FASTING 86 MG/DL (70-100); HEMOGLOBIN 12.2 g/dl (12.0-15.5); MEAN CORPUSCULAR HEMOGLOBIN 29.3 pg (27.0-33.0); MEAN CORPUSCULAR HGB CONC 32.1 g/dl (32.0-36.5); MEAN CORPUSCULAR VOLUME 91.3 fl (80.0-96.0); PLATELET COUNT, AUTOMATED 245 10^3/uL (150-450); POTASSIUM SERUM 4.5 MEQ/L (3.5-5.1); RED BLOOD COUNT 4.16 10^6/uL (4.00-5.40); SODIUM LEVEL 140 MEQ/L (136-145); WHITE BLOOD COUNT 7.1 10^3/uL (4.0-10.0)
== END ==
LOC: M SFHCPLAZ 11:42
PROVIDERS: ATTEND Family Medicine
DX: Z01.818 Encounter for other preprocedural examination (principal)

== ENCOUNTER → 2020-06-24 | Outpatient (CLI) | payer BC | LOC: M LABSMTC 12:09 | PROVIDERS: ATTEND Anesthesiology | DX: Z01.812 Encounter for preprocedural laboratory examination (principal); Z20.822 Contact with and (suspected) exposure to COVID-19 ==

== ENCOUNTER 2020-06-29 08:08 | Day surgery (SDC) | payer BC ==
[~2020-06-29] VITALS: Ht 170.2 cm; Wt 83.9 kg
[~2020-06-29 08:08] MED LIST changes: +HEPARIN SOD (PORCINE) 5000UNITS/ML 1ML VIAL/SYRINGE SQ ONE; +LR 1,000 ML IV ONE; +ceFAZolin SOD 2 GM in IV 1 EA IV ONE
[2020-06-29] MEDS ORDERED: LIDOCAINE 2% 100MG/5ML SDV (FOR ANES.) As Ordered ONE (09:00)
[2020-06-29] MEDS ORDERED: dexameTHASONE 4 MG/ML 1ML VIAL (J1100 PER 1MG) As Ordered ONE (09:00)
[2020-06-29] MEDS ORDERED: propofoL 200 MG/20 ML VIAL As Ordered ONE (09:00)
[2020-06-29] MEDS ORDERED: ONDANSETRON 4MG/2ML VIAL As Ordered ONE (09:00)
[2020-06-29] MEDS ORDERED: fentaNYL 100 MCG/2 ML INJECTION (J3010) As Ordered ONE ×2 (09:01→12:49)
[2020-06-29] MEDS ORDERED: MIDAZOLAM INJ 2MG/2ML VIAL (J2250 PER 1MG) As Ordered ONE (09:01)
[2020-06-29] MEDS ORDERED: BUPIVACAINE HCL 0.25% 30ML VIAL As Ordered ONE (09:27)
[2020-06-29] MEDS ORDERED: LIDOCAINE 1% SDV 30ML VIAL As Ordered ONE (09:27)
[2020-06-29] MEDS ORDERED: HYDROmorphone HCL 2 MG/ML 1ML VIAL (J1170) As Ordered ONE (10:41)
[2020-06-29] MEDS ORDERED: ACETAMINOPHEN 1000MG 100ML IV BTL (OFIRMEV) (J0131 PER 10MG) As Ordered ONE (10:41)
--- NOTE | 2020-06-29 11:05 | REP ---
INDICATION: RIGHT BREAST LUMP WITH INTRAOP WIRE. COMPARISON: Comparison mammography June 03, 2020.. TECHNIQUE: Sonographic guidance. FINDINGS: Sonographic guidance is provided to Dr. Valle who performed a ultrasound-guided needle wire localization device in the right plateau breast. IMPRESSION: Sonographic guidance. <Electronically signed by Ish Muniz > 06/29/20 [id number]
[2020-06-29] MEDS ORDERED: ESMOLOL INJ 100MG/10ML VIAL As Ordered ONE (11:23)
[2020-06-29] MEDS ORDERED: LABETALOL 100MG/20ML VIAL As Ordered ONE (11:49)
[2020-06-29] MEDS ORDERED: ROXI1TAB2 PO (12:43)
[2020-06-29] MEDS ORDERED: fentaNYL 100 MCG/2 ML INJECTION (J3010) IV PRN (13:00)
[2020-06-29] MEDS ORDERED: ONDANSETRON 4MG/2ML VIAL IV PRN (13:00)
[2020-06-29] MEDS ORDERED: HYDROMORPHONE HCL 0.5 MG/ 0.5 ML SYRINGE (J1170 PER 1) IV PRN (13:00)
[2020-06-29] MEDS ORDERED: oxyCODONE 5MG TAB PO PRN (13:00)
[2020-06-29] MEDS ORDERED: LR 1,000 ML IV SCH (13:00)
[2020-06-29 14:15] VITALS: BP 141/89
--- NOTE | 2020-06-29 21:53 | ROOPDOC ---
[facility] Report Of Operation Report of Operation DATE OF PROCEDURE: 06/29/20 PREPROCEDURE DIAGNOSES: right breast cancer ( DCIS) POSTPROCEDURE DIAGNOSES: same PROCEDURE: Right breast lumpectomy with intraop wire placement SURGEON: April Coreas ANESTHESIA: general ESTIMATED BLOOD LOSS: Approximately 15 mL. COMPLICATIONS: none REMARKS: calcifications seen in the inferoposterior aspect of specimen and in the inferior margin, clip is centrally located in main specimen DESCRIPTION OF PROCEDURE: INDICATIONS: Ms. Sandy Hoyt is a 54-year-old woman who was found to have a suspicious right breast calcification on screening mammogram. Patient initially declined the biopsy. MRI of the breast was done and showed suspicious area of enhancement in the right breast corresponding to the location of previously identified calcifications. Patient underwent right breast stereotactic biopsy with Hydromark clip placement. Biopsy showed Grade 3 DCIS ER+, NE +. She opted for breast conservative surgery. Since there is no invasive carcinoma identified at this time, no sentinel lymph node biopsy will be pursued. Patient was medically cleared for surgery by her primary care doctor. Risks and possible complications of surgical procedure including bleeding, infection and injury to surrounding structures were explained to the patient and she wished to proceed. Consent was signed. My initials were placed on the operative site. Subcutaneous injection of 5000 units of heparin was done. The injection of radioactive tracer was done in radiology department preoperatively. DETAILS: Patient was taken to the operating room and placed on the operating room table. A sign in was called stating patients name, date of and the procedure to be done. Preoperative antibiotics were infused. Smooth induction of general anesthesia was done. Patients hands were extended on arm rests. Care was taken not to over extend the arms. Pillow was placed under the knees and a foam was placed under the heels. Sequential compression devices were placed and assured to function correctly. Procedure was started with right breast intraop wire localization. Appropriate time out was done and patients name, date of , and the procedure to be d one were confirmed. Right breast was cleaned by me. Intraoperative ultrasound was used to confirm location of the Hydromark clip. Location of the clip was marked on the skin as well. 21 G [employer] Breast Lesion Localization Needle was used to place 25 cm wire through the lesion. The end of the wire was passed a centimeter deep. The images were captured confirming adequate placement of the localizing wire. Event Marketing Intern assisted with the wire placement. Next, patients right breast and axilla were prepped and draped in the usual fashion. Care was taken not to displace the wire. Appropriate time out was done again prior second part of the procedure. Patients name, date of , and the procedure to be done were confirmed. Local anesthetic using 1% lidocaine and 0.25 % Marcaine 50/50 mix was injected at the site of planned periareolar incision. The incision was made with the scalpel. Subcutaneous skin flaps were raised and the guide wire was carefully pulled into the wound. Dissection was carries along the wire until the previously marked on the skin area of target lesion location was encountered. At this point, wider excision of the tissue surrounding the wire was done. The Hydromark clip was identified in the tissue with intraoperative hockey stick ultrasound probe. The end of the wire was identified with palpation. The lumpectomy specimen was carefully removed from the breast keeping its proper orientation and moved to the back table where margins were marked with the surgical inking kit following the standard colors recommendations. Specimen was then placed on the grid and placed in [employer] [facility]imen [facility] System. The image revealed the wire, Hydromark in the specimen and some calcifications on the posterior- inferior edge. The specimen measures 5.5 x 3.5 cm. It was labeled with patients name and right lumpectomy and sent to pathology. Next, since the calcifications were seen at the inferioposterior edge of the specimen, additional margins were taken in the deep and inferior aspect of lumpectomy. Deep margin was taken all the way to the muscle. All new margins, defined as margin farthest away from lumpectomy cavity, were marked with black ink. Each margin was sent as a separate specimen with appropriate labeling. Radiography of each margin was taken. The image of inferior margin showed cluster of calcifications similar to the remaining calcification on postbiopsy mammogram. Next, wound was thoroughly irrigated. Adequate hemostasis was assured. Additional local anesthetic was injected into surrounding tissues. Clips were placed to donna the cavity. space was approximated with 2-0 Vicryl. The dermis was closed with 3-0 Vicryl and skin was closed with 4-0 Monocryl. Surgical glue was placed over the incision. Patient emerged from the anesthesia without any problems. Fluffs were placed over the operative site and patients chest was wrapped snuggly in the LILA wrap. Sponge and instrument counts were done and were correct. Patient tolerated procedure well and was taken to recovery unit in stable con dition. APRIL COREAS. Jun 29, 2020 21:52
--- NOTE | 2020-06-30 10:13 | REP ---
INDICATION: RIGHT BREAST LUMPECTOMY W/INTRAOP WIRE. Excision a biopsy right breast. COMPARISON: Comparison right mammography 03 June 2020.. TECHNIQUE: Ten views including several specimen photograph size. FINDINGS: Specimen radiographs demonstrate a Kopan's wire localization device and needle biopsy HydroMARK clip adjacent to some microcalcifications in the specimen. A 2nd specimen radiograph does not show any distinctive radiographic features. A 3rd specimen radiograph shows a grouping of microcalcifications microcalcifications as well. IMPRESSION: Specimen radiography demonstrates a HydroMARK marker clip and groupings of microcalcifications within the specimen. <Electronically signed by Ish Muniz > 06/30/20 1010
== END 2020-06-29 14:20 | disposition home or self-care (01) ==
LOC: M SDC 08:08
PROVIDERS: ATTEND Surgery
DX: D05.11 Intraductal carcinoma in situ of right breast (principal); Z17.0 Estrogen receptor positive status [ER+]; I10 Essential (primary) hypertension; E78.2 Mixed hyperlipidemia; E11.9 Type 2 diabetes mellitus without complications; M10.9 Gout, unspecified; K21.9 Gastro-esophageal reflux disease without esophagitis; J45.909 Unspecified asthma, uncomplicated; K76.9 Liver disease, unspecified; Z87.891 Personal history of nicotine dependence; Z88.8 Allergy status to other drugs, medicaments and biological substances; Z79.82 Long term (current) use of aspirin; Z79.84 Long term (current) use of oral hypoglycemic drugs; Z79.899 Other long term (current) drug therapy; J84.9 Interstitial pulmonary disease, unspecified
CPT/HCPCS: 19125; 36415; 76942; 86850; 86900; 86901; 88307; J0131; J0690; J1100; J1170; J1644; J2250; J2405; J3010

== ENCOUNTER → 2020-07-13 | Outpatient (CLI) | payer BC ==
[~2020-07-13] MED LIST changes: -HEPARIN SOD (PORCINE) 5000UNITS/ML 1ML VIAL/SYRINGE SQ ONE; -LR 1,000 ML IV ONE; +ROXI1TAB2 PO; -ceFAZolin SOD 2 GM in IV 1 EA IV ONE
--- NOTE | 2020-07-13 12:03 | RADONC.CN ---
Radiation Oncology Hx/Consult Radiation Oncology Consult Date of Service: Jul 13, 2020 Pt Identifier Sandy Hoyt is a 54 year old female with screening detected right breast DCIS pTisNXMX ER/UT+ Grade 3 s/p lumpectomy with Dr. Coreas on 06/29/20. She is seen for consideration of adjuvant RT. Diagnosis/Treatment History Oncologic History 04/14/20 Mammogram with microcalcifications in the right central breast 04/20/20 Diagnostic mammogram confirming right central breast lesion 05/14/20 MRI without regional disease 06/03/20 Biopsy with DCIS Grade 3 06/29/20 Lumpectomy ([facility]) pTisNX ER/UT+ Grade 3 margins negative Interval History Feels well. Mild breast tenderness, no drainage from incision. Full ROM BL arms. 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 Appetite good energy levels good. Past Medical History: PBC CVD COPD HSIL DMII Breast history: first @ 35 Menses @ 11 Menopause @ 37 (surgical) Gout HPL HTN Past Surgical History: Hysterectomy Family History: Aunt breast cancer Father lung cancer Social History: 10 pack year former smoker quit ~2004 Drinks on occasion 1-2 alcoholic beverages Allergies / Meds Allergies: Coded Allergies: Rucxoxg-Nni-Kon Reductase Inhibitor (Verified Allergy, Intermediate, leg cramps, 06/23/20) bacitracin (Verified Allergy, Intermediate, hives, 06/23/20) Home Meds Active Scripts Oxycodone HCl (Roxicodone) 5 Mg Tablet, 5 MG PO Q6HP PRN for pain MDD 4 Tablet(s) for 3 Days, #10 TAB Prov:APRIL COREAS DO 06/29/20 Reported Medications Ergocalciferol (Vitamin D2) (Vitamin D2) 50,000 Units Cap, 39498 UNITS PO QMONTH, CAP 06/23/20 Beclomethasone Dipropionate (Qvar Redihaler) 40 Mcg/Act Hfa.aeroba, 40 MCG INH DAILY, INHALER 06/23/20 Docusate Sodium (Colace) 100 Mg Capsule, 100 MG PO DAILY, CAP 06/23/20 Diphenhydramine HCl (Benadryl) 25 Mg Capsule, 50 MG PO QHS, CAP 06/23/20 Glucosamine Sulfate Dipot Chlr (Glucosamine) 1,000 Mg Tablet, 1000 MG PO DAILY, TAB 06/23/20 Pantoprazole Sodium (Pantoprazole Sodium) 20 Mg Tablet.dr, 20 MG PO BID, TAB 06/23/20 Ondansetron HCl (Zofran) 4 Mg Tablet, 4 MG PO PRN PRN for NAUSEA, TAB 06/23/20 Gemfibrozil (Lopid) 600 Mg Tablet, 600 MG PO BID, TAB 06/23/20 Metformin HCl (Metformin HCl) 1,000 Mg Tablet, 1000 MG PO BID, TAB 06/23/20 Allopurinol (Zyloprim) 300 Mg Tablet, 300 MG PO DAILY, TAB 06/23/20 Dulaglutide (Trulicity) 1.5 Mg/0.5 Ml Pen.injctr, 1.5 MG SC QWEEK sunday06/23/20 Glipizide (Glipizide ER) 5 Mg Tab.er.24, 10 MG PO DAILY, TAB 06/23/20 Losartan Potassium (Losartan Potassium) 50 Mg Tablet, 50 MG PO DAILY, TAB 06/23/20 Magnesium Oxide (Magnesium) 400 Mg Capsule, 400 MG PO DAILY, CAP 06/23/20 Aspirin (Aspirin EC) 81 Mg Tablet.dr, 81 MG PO DAILY, TAB 06/23/20 Review of Systems General: Reports: Normal Appetite Constitutional: Denies: Chills, Fever, Night Sweats Eyes: Denies: Pain, Vision change HEENT: Denies: Head Aches, Dysphagia, Sore Throat Skin: Denies: Rash, Lesions, Bruising Pulmonary: Denies: Dyspnea, Cough Cardiovascular: Denies: Chest Pain, Palpitations, Edema Gastrointestinal: Denies: Nausea, Vomiting, Abdominal Pain, Diarrhea Genitourinary: Denies: Dysuria, Frequency, Incontinence Hematologic: Denies: Bruising, Petecchia, Enlarged Lymph Nodes Musculoskeletal: Denies: Neck pain, Back pain Neurological: Denies: Weakness, Numbness, Incoordination Psych: Reports: Mood Normal; Denies: Memory Issues, Thoughts of Self Harm Vital Signs Ht 67" Wt 190 lbs BMI 30 T 97.5 P 91 RR 16 BP 155/81 O2 99% Pain 0 Fatigue 0 General Exam: Positive: Alert, Cooperative, No Acute Distress Eye Exam: Positive: PERRLA, EOMI ENT EXAM: Positive: Mucous membr. moist/pink, Pharynx Normal Neck Exam: Negative: Thyromegaly, Lymphadenopathy Chest Exam: Positive: Normal air movement; Negative: Rales, Rhonchi, Wheezing Heart Exam: Positive: Rate Normal, Regular Rhythm Breast Exam: Positive: Symmetric Bilaterally; Negative: Lumps or Masses, Skin Changes (Well healing right periareolar incision, palpable seroma in the right central breast) Abdomen Exam: Positive: Soft; Negative: Tenderness, Mass Extremity Exam: Negative: Edema, Tenderness Skin Exam: Positive: Nl turgor and temperature; Negative: Rash Neuro Exam: Positive: Normal Gait, Normal Speech, Cranial Nerves 3-12 NL Psych Exam: Positive: Mental status NL, Mood NL, Memory Intact Diagnostic and Laboratory Diagnostic Review Radiologic images, relevant labs and pathology reports were personally reviewed and discussed with Ms. Hoyt. Assessment and Plan Impression Ms. Hoyt is a 54 year old female with a history of screening detected right breast DCIS pTisNXMX ER/UT+ Grade 3 s/p lumpectomy with Dr. Coreas on 06/29/20. She is seen for consideration of adjuvant RT. Stage Stage 0 pTisNXMX ER/UT+ Grade 3 Performance Status ECOG 0 Plan We had an extensive discussion with Ms. Hoyt regarding the diagnosis at hand and available therapeutic options. She has done well post-operatively and has minimal residual discomfort. Her in cision is well-healed on exam. For her DCIS, given her habitus, I recommend WBI 40 Gy in 15 fractions without a boost. I would treat her in the supine position for this. The alternative would be for APBI, however the lesion is in the central breast, retroareolar, with a large seroma, and moreover her DCIS was of high grade, which in my view renders her case most appropriate for WBI. She is in agreement We discussed the logistics of receiving radiation therapy in detail including the need for a 1-time planning session. This can occur next week. We reviewed the possible toxicities of treatment including fatigue, skin reaction and late fibrosis. After discussing the risks, benefits and alternatives to radiation therapy, Ms. Hoyt was amenable to pursuing radiotherapy. All questions were answered to the patient's satisfaction. We instructed the patient that if there were any questions,concerns or changes in clinical status in the interim to contact us. Recommendations Right whole breast RT 40 Gy in 15 fractions, no boost. Simulation in the coming week Billing Statement Total time of [37] minutes was spent preparing for the visit [2], obtaining HPI [4], examining the patient [3], reviewing diagnostic tests [4], discussing management options [15], coordinating care [2], and writing this note [7]. ALEN JOHNSON MD Jul 13, 2020 12:03
== END ==
LOC: M ONCR 08:57
PROVIDERS: ATTEND General Practice
DX: C50.911 Malignant neoplasm of unspecified site of right female breast (principal)

== ENCOUNTER → 2020-08-13 | Outpatient (RCR) | payer BC | LOC: M ONCR 07-21 14:29 | PROVIDERS: ATTEND General Practice | DX: D05.11 Intraductal carcinoma in situ of right breast (principal) ==

== ENCOUNTER 2020-08-27 08:11 | Outpatient (RCR) | payer BC ==
[2020-09-09] MEDS ORDERED: ANAS1TAB2 PO (15:50)
[2020-09-09] MEDS ORDERED: FERR325T3 PO (17:21)
== END 2020-09-13 ==
LOC: M ONCR 08:11
PROVIDERS: ATTEND General Practice
DX: D05.11 Intraductal carcinoma in situ of right breast (principal)

== ENCOUNTER → 2020-09-21 | Outpatient (CLI) | payer BC ==
[~2020-09-21] MED LIST changes: +ANAS1TAB2 PO; +FERR325T3 PO
--- NOTE | 2020-09-21 09:47 | DEXAMM ---
INDICATION: BREAST CA,ON AI. COMPARISON: 10/01/2007. TECHNIQUE: Bone density was measured using dual-energy x-ray absorptiometry (DEXA). FINDINGS: AP SPINE L1-L4 BMD 1.431 g/cm2 Young Adult T-Score 1.9 Age Matched Z-Score 2.9. LT FEMUR, TOTAL BMD 1.162 g/cm2 Young Adult T-Score 1.2 Age Matched Z-Score 2.0. LT NECK BMD 1.114 g/cm2 Young Adult T-Score 0.5 Age Matched Z-Score 1.7. RT FEMUR, TOTAL BMD 1.143 g/cm2 Young Adult T-Score 1.1 Age Matched Z-Score 1.8. RT NECK BMD 1.181 g/cm2 Young Adult T-Score 1.0 Age Matched Z-Score 2.1. IMPRESSION: There is normal bone density of the spine. There is normal bone density of the left hip. There is normal bone density of the right hip. The density of the spine has decreased 8.2% since the initial exam on 10/01/2007. The density of the left hip has decreased 14.0% since initial exam on 10/01/2007. The density of the right hip has decreased 15.2% since the initial exam on 10/01/2007. FOLLOW-UP: Recommendation for the next bone density exam: 5 years. <Electronically signed by Dewayne Wharton > 09/21/20 [id number]
== END ==
LOC: M WHC 07:49
PROVIDERS: ATTEND Internal Medicine Medical Oncology
DX: C50.919 Malignant neoplasm of unspecified site of unspecified female breast (principal)

== ENCOUNTER → 2020-11-15 | Outpatient (CLI) | payer BC ==
[~2020-11-15] MED LIST changes: +ERGO500029 PO; -VITA50005 PO
[2020-11-15 11:20] LABS: ALBUMIN 3.9 GM/DL (3.2-5.2); ALT/SGPT 27 U/L (12-78); BILIRUBIN,TOTAL 0.3 MG/DL (0.2-1.0); BLOOD UREA NITROGEN 16 MG/DL (7-18); CALCIUM LEVEL 9.1 MG/DL (8.5-10.1); CARBON DIOXIDE LEVEL 28 MEQ/L (21-32); CHLORIDE LEVEL 107 MEQ/L (98-107); CHOLESTEROL LEVEL 176 MG/DL (<200); CHOLESTEROL RISK RATIO 5.028 (<5); CREATININE FOR GFR 0.64 MG/DL (0.55-1.30); CREATININE, URINE 65.4 MG/DL; GLOMERULAR FILTRATION RATE > 60.0 (>51); GLUCOSE, FASTING 109 MG/DL (70-100); HDL CHOLESTEROL 35 MG/DL (>40); LDL CHOLESTEROL 110 MG/DL (<100); MALB URINE SIEMENS 7.6 MG/L; MAU/CREAT RATIO 11.6 MCG/MG (0.0-30.0); NON-HDL-C 141 MG/DL; POTASSIUM SERUM 4.7 MEQ/L (3.5-5.1); SODIUM LEVEL 141 MEQ/L (136-145); TOTAL PROTEIN 7.4 GM/DL (6.4-8.2); TRIGLYCERIDES LEVEL 155 MG/DL (<150); URIC ACID 4.8 MG/DL (2.6-6.0)
[2020-11-15 11:36] LABS: HEMOGLOBIN A1c 6.1 %
== END ==
LOC: M PLALAB 09:08
PROVIDERS: ATTEND Nurse Practitioner Family
DX: M10.9 Gout, unspecified (principal)

== ENCOUNTER → 2021-01-12 | Outpatient (CLI) | payer BC ==
[~2021-01-12] MED LIST changes: +ALLO300T2 PO
--- NOTE | 2021-01-13 08:37 | REP ---
INDICATION: ABN FINDINGS OF LUNG FIELD COMPARISON: 06/18/2020 TECHNIQUE: Axial noncontrast images from the thoracic inlet to the upper abdomen with coronal and sagittal reformations. This CT examination was performed using the following dose reduction techniques: Automated exposure control, adjustment of mA and/or kv according to the patient's size, and use of iterative reconstruction technique. FINDINGS: Bilateral lung galvez are relatively symmetric and well aerated. There is a somewhat cavitary lesion in the periphery of the right upper lobe measuring roughly 1.7 cm maximal diameter with surrounding halo of ground-glass opacity as well as a similar area of ground-glass opacity along the medial left lower lobe without central cavitary component. These findings remains stable and no new such lesions are identified. No acute consolidation. No nodule or mass. No effusion. No pneumothorax. Tracheobronchial tree is patent. No adenopathy. Further evaluation of the mediastinum demonstrates stable atherosclerotic changes to the thoracic aorta. No cardiomegaly or pericardial effusion. Surrounding musculoskeletal structures demonstrate age-related degenerative changes without acute osseous abnormality. Postsurgical changes involving the right breast noted. Normal bilateral adrenal glands. IMPRESSION: 1. Stable appearance to the right upper lobe and left lower lobe areas of opacity likely representing sequelae of prior infectious/inflammatory process. 2. No new acute mediastinal or pleuroparenchymal process appreciated. <Electronically signed by Manuel Diaz > 01/13/21 [id number]
== END ==
LOC: M RAD 16:41
PROVIDERS: ATTEND Internal Medicine Pulmonary Disease
DX: R91.8 Other nonspecific abnormal finding of lung field (principal)

== ENCOUNTER → 2021-04-04 | Outpatient (REF) ==
[~2021-04-04] MED LIST changes: +LOSA50TA28 PO; -LOSA50TA88 PO
[2021-04-04 12:15] LABS: RSV AMPLIFICATION NEGATIVE (NEGATIVE)
== END ==
LOC: M LABSMTC 09:44
PROVIDERS: ATTEND Family Medicine
DX: Z11.52 Encounter for screening for COVID-19 (principal)

== ENCOUNTER → 2021-04-22 | Outpatient (CLI) | payer BC | LOC: M WHC 14:02 | PROVIDERS: ATTEND Surgery | DX: D05.11 Intraductal carcinoma in situ of right breast (principal) | CPT/HCPCS: 77066; G0279 ==

== ENCOUNTER → 2021-05-24 | Outpatient (REF) | payer BC | LOC: M SFHCPLAZ 12:58 | PROVIDERS: ATTEND Nurse Practitioner Adult Health | DX: Z12.31 Encounter for screening mammogram for malignant neoplasm of breast (principal); Z87.410 Personal history of cervical dysplasia ==

== ENCOUNTER → 2021-06-11 | Outpatient (CLI) | payer BC ==
[2021-06-11 09:51] LABS: BASO % 0.6 % (0.0-1.0); EOS # 0.1 10^3/uL (0.0-0.5); EOS % 2.1 % (0.0-3.0); HEMATOCRIT 37.9 % (36.0-47.0); HEMOGLOBIN 12.8 g/dl (12.0-15.5); LYMPH # 1.3 10^3/uL (1.5-5.0); LYMPH % 27.3 % (24.0-44.0); MEAN CORPUSCULAR HEMOGLOBIN 31.9 pg (27.0-33.0); MEAN CORPUSCULAR HGB CONC 33.8 g/dl (32.0-36.5); MEAN CORPUSCULAR VOLUME 94.5 fl (80.0-96.0); MONO # 0.3 10^3/uL (0.0-0.8); NEUTROPHILS # 3.1 10^3/uL (1.5-8.5); NEUTROPHILS % 63.6 % (36.0-66.0); PLATELET COUNT, AUTOMATED 187 10^3/uL (150-450); RED BLOOD COUNT 4.01 10^6/uL (4.00-5.40); WHITE BLOOD COUNT 4.8 10^3/uL (4.0-10.0)
[2021-06-11 10:20] LABS: ALBUMIN 4.2 GM/DL (3.2-5.2); ALT/SGPT 74 U/L (12-78); BILIRUBIN,TOTAL 0.4 MG/DL (0.2-1.0); BLOOD UREA NITROGEN 18 MG/DL (7-18); CALCIUM LEVEL 9.6 MG/DL (8.5-10.1); CARBON DIOXIDE LEVEL 29 MEQ/L (21-32); CHLORIDE LEVEL 106 MEQ/L (98-107); CREATININE FOR GFR 0.74 MG/DL (0.55-1.30); FERRITIN 463 NG/ML (8-252); GLOMERULAR FILTRATION RATE > 60.0 (>51); GLUCOSE, FASTING 114 MG/DL (70-100); IRON (FE) 106 UG/DL (50-170); POTASSIUM SERUM 4.5 MEQ/L (3.5-5.1); SODIUM LEVEL 141 MEQ/L (136-145); TOTAL IRON BINDING CAPACITY 407 UG/DL (250-450); TOTAL PROTEIN 7.9 GM/DL (6.4-8.2)
== END ==
LOC: M LAB 09:01
PROVIDERS: ATTEND Internal Medicine Medical Oncology
DX: D50.9 Iron deficiency anemia, unspecified (principal); C50.919 Malignant neoplasm of unspecified site of unspecified female breast

== ENCOUNTER → 2021-06-11 | Outpatient (CLI) | payer BC ==
[2021-06-11 10:16] LABS: HEMOGLOBIN A1c 5.9 %
[2021-06-11 10:19] LABS: ALBUMIN 4.1 GM/DL (3.2-5.2); ALT/SGPT 75 U/L (12-78); BILIRUBIN,TOTAL 0.3 MG/DL (0.2-1.0); BLOOD UREA NITROGEN 18 MG/DL (7-18); CALCIUM LEVEL 9.5 MG/DL (8.5-10.1); CARBON DIOXIDE LEVEL 28 MEQ/L (21-32); CHLORIDE LEVEL 105 MEQ/L (98-107); CHOLESTEROL LEVEL 161 MG/DL (<200); CHOLESTEROL RISK RATIO 5.366 (<5); CREATININE FOR GFR 0.67 MG/DL (0.55-1.30); GLOMERULAR FILTRATION RATE > 60.0 (>51); GLUCOSE, FASTING 112 MG/DL (70-100); HDL CHOLESTEROL 30 MG/DL (>40); LDL CHOLESTEROL 92 MG/DL (<100); NON-HDL-C 131 MG/DL; POTASSIUM SERUM 4.4 MEQ/L (3.5-5.1); SODIUM LEVEL 141 MEQ/L (136-145); TOTAL PROTEIN 7.8 GM/DL (6.4-8.2); TRIGLYCERIDES LEVEL 196 MG/DL (<150)
[2021-06-11 10:26] LABS: CREATININE, URINE 99.6 MG/DL
[2021-06-13 10:54] LABS: TOTAL 25(OH) VITAMIN D 32.9 NG/ML (30.0-100.0)
== END ==
LOC: M LAB 08:59
PROVIDERS: ATTEND Nurse Practitioner Adult Health
DX: I10 Essential (primary) hypertension (principal)

== ENCOUNTER → 2021-11-23 | Outpatient (CLI) | payer OTHER ==
[2021-11-23 14:14] LABS: BASO % 0.6 % (0.0-1.0); EOS # 0.1 10^3/uL (0.0-0.5); EOS % 1.6 % (0.0-3.0); HEMATOCRIT 41.4 % (36.0-47.0); HEMOGLOBIN 13.7 g/dl (12.0-15.5); LYMPH # 1.2 10^3/uL (1.5-5.0); LYMPH % 23.1 % (24.0-44.0); MEAN CORPUSCULAR HEMOGLOBIN 32.1 pg (27.0-33.0); MEAN CORPUSCULAR HGB CONC 33.1 g/dl (32.0-36.5); MONO # 0.4 10^3/uL (0.0-0.8); MONO % 7.9 % (2.0-8.0); NEUTROPHILS # 3.4 10^3/uL (1.5-8.5); NEUTROPHILS % 66.4 % (36.0-66.0); PLATELET COUNT, AUTOMATED 184 10^3/uL (150-450); RED BLOOD COUNT 4.27 10^6/uL (4.00-5.40); WHITE BLOOD COUNT 5.1 10^3/uL (4.0-10.0)
[2021-11-23 14:35] LABS: ALBUMIN 4.3 GM/DL (3.2-5.2); ALT/SGPT 105 U/L (12-78); BILIRUBIN,TOTAL 0.3 MG/DL (0.2-1.0); BLOOD UREA NITROGEN 18 MG/DL (7-18); CALCIUM LEVEL 9.5 MG/DL (8.5-10.1); CARBON DIOXIDE LEVEL 28 MEQ/L (21-32); CHLORIDE LEVEL 105 MEQ/L (98-107); CREATININE FOR GFR 0.67 MG/DL (0.55-1.30); FERRITIN 252 NG/ML (8-252); GLOMERULAR FILTRATION RATE > 60.0 (>51); GLUCOSE, FASTING 146 MG/DL (70-100); IRON (FE) 91 UG/DL (50-170); PERCENT SATURATION 19.5 % (13.2-45.0); POTASSIUM SERUM 4.4 MEQ/L (3.5-5.1); SODIUM LEVEL 140 MEQ/L (136-145); TOTAL IRON BINDING CAPACITY 467 UG/DL (250-450); TOTAL PROTEIN 8.2 GM/DL (6.4-8.2)
== END ==
LOC: M PLALAB 09:15
PROVIDERS: ATTEND Internal Medicine Medical Oncology
DX: D05.10 Intraductal carcinoma in situ of unspecified breast (principal)

== ENCOUNTER → 2021-11-23 | Outpatient (CLI) | payer OTHER ==
[2021-11-23 14:33] LABS: ALBUMIN 4.3 GM/DL (3.2-5.2); ALT/SGPT 106 U/L (12-78); BILIRUBIN,TOTAL 0.3 MG/DL (0.2-1.0); BLOOD UREA NITROGEN 18 MG/DL (7-18); CALCIUM LEVEL 9.5 MG/DL (8.5-10.1); CARBON DIOXIDE LEVEL 27 MEQ/L (21-32); CHLORIDE LEVEL 105 MEQ/L (98-107); CHOLESTEROL LEVEL 181 MG/DL (<200); CHOLESTEROL RISK RATIO 6.033 (<5); GLOMERULAR FILTRATION RATE > 60.0 (>51); GLUCOSE, FASTING 147 MG/DL (70-100); HDL CHOLESTEROL 30 MG/DL (>40); LDL CHOLESTEROL 99 MG/DL (<100); MAGNESIUM LEVEL 1.9 MG/DL (1.8-2.4); NON-HDL-C 151 MG/DL; POTASSIUM SERUM 4.3 MEQ/L (3.5-5.1); SODIUM LEVEL 139 MEQ/L (136-145); TOTAL PROTEIN 8.2 GM/DL (6.4-8.2); TRIGLYCERIDES LEVEL 259 MG/DL (<150); URIC ACID 6.5 MG/DL (2.6-6.0)
[2021-11-23 15:14] LABS: TOTAL 25(OH) VITAMIN D 33.6 NG/ML (30.0-100.0)
[2021-11-23 16:47] LABS: MAU/CREAT RATIO 144.2 MCG/MG (0.0-30.0)
[2021-11-23 17:06] LABS: HEMOGLOBIN A1c 6.3 %
== END ==
LOC: M PLALAB 09:12
PROVIDERS: ATTEND Nurse Practitioner Adult Health
DX: M10.9 Gout, unspecified (principal); E11.9 Type 2 diabetes mellitus without complications; E55.9 Vitamin D deficiency, unspecified; K21.9 Gastro-esophageal reflux disease without esophagitis; K75.81 Nonalcoholic steatohepatitis (NASH)

== ENCOUNTER → 2022-04-20 | Outpatient (CLI) | payer OTHER | LOC: M WHC 08:17 | PROVIDERS: ATTEND Nurse Practitioner Women's Health | DX: D05.11 Intraductal carcinoma in situ of right breast (principal) ==

== ENCOUNTER → 2022-05-23 | Outpatient (CLI) | payer OTHER ==
[2022-05-23 16:57] LABS: BASO # 0.1 10^3/uL (0.0-0.2); BASO % 0.8 % (0.0-1.0); EOS # 0.1 10^3/uL (0.0-0.5); EOS % 1.4 % (0.0-3.0); HEMATOCRIT 43.7 % (36.0-47.0); HEMOGLOBIN 14.6 g/dl (12.0-15.5); LYMPH # 1.9 10^3/uL (1.5-5.0); LYMPH % 29.9 % (24.0-44.0); MEAN CORPUSCULAR HEMOGLOBIN 31.5 pg (27.0-33.0); MEAN CORPUSCULAR HGB CONC 33.4 g/dl (32.0-36.5); MEAN CORPUSCULAR VOLUME 94.2 fl (80.0-96.0); MONO # 0.4 10^3/uL (0.0-0.8); MONO % 5.8 % (2.0-8.0); NEUTROPHILS # 3.8 10^3/uL (1.5-8.5); NEUTROPHILS % 61.8 % (36.0-66.0); PLATELET COUNT, AUTOMATED 200 10^3/uL (150-450); RED BLOOD COUNT 4.64 10^6/uL (4.00-5.40); WHITE BLOOD COUNT 6.2 10^3/uL (4.0-10.0)
[2022-05-23 17:31] LABS: IRON (FE) 128 UG/DL (50-170); PERCENT SATURATION 30.3 % (13.2-45.0); TOTAL IRON BINDING CAPACITY 423 UG/DL (250-425)
[2022-05-23 17:32] LABS: ALBUMIN 4.4 G/DL (3.2-5.2); ALKALINE PHOSPHATASE 107 U/L (46-116); ALT/SGPT 78 U/L (7.0-40); AST/SGOT 77 U/L (<34); BILIRUBIN,TOTAL 0.6 MG/DL (0.3-1.2); BLOOD UREA NITROGEN 19 MG/DL (9-23); CALCIUM LEVEL 9.7 MG/DL (8.5-10.1); CARBON DIOXIDE LEVEL 30 MMOL/L (20-31); CHLORIDE LEVEL 100 MMOL/L (98-107); CREATININE FOR GFR 0.63 MG/DL (0.55-1.30); GLOMERULAR FILTRATION RATE > 60.0 (>51); GLUCOSE, FASTING 132 MG/DL (60-100); POTASSIUM SERUM 4.4 MMOL/L (3.5-5.1); SODIUM LEVEL 139 MMOL/L (136-145); TOTAL PROTEIN 8.2 G/DL (5.7-8.2)
[2022-05-23 17:33] LABS: FERRITIN 81.3 NG/ML (7.3-270.7)
== END ==
LOC: M WUC 10:43
PROVIDERS: ATTEND Internal Medicine Medical Oncology
DX: E78.2 Mixed hyperlipidemia (principal); E11.9 Type 2 diabetes mellitus without complications; K75.81 Nonalcoholic steatohepatitis (NASH); K21.9 Gastro-esophageal reflux disease without esophagitis; M10.9 Gout, unspecified

== ENCOUNTER → 2022-05-23 | Outpatient (CLI) | payer OTHER ==
[2022-05-23 17:29] LABS: CREATININE, URINE 138.1 MG/DL
[2022-05-23 17:30] LABS: MAU/CREAT RATIO 82.5 MCG/MG (0.0-30.0)
[2022-05-23 17:43] LABS: URIC ACID 6.1 MG/DL (3.1-7.8)
[2022-05-23 17:46] LABS: ALBUMIN 4.4 G/DL (3.2-5.2); ALKALINE PHOSPHATASE 108 U/L (46-116); ALT/SGPT 77 U/L (7.0-40); AST/SGOT 77 U/L (<34); BILIRUBIN,TOTAL 0.6 MG/DL (0.3-1.2); BLOOD UREA NITROGEN 18 MG/DL (9-23); CALCIUM LEVEL 9.5 MG/DL (8.5-10.1); CARBON DIOXIDE LEVEL 27 MMOL/L (20-31); CHLORIDE LEVEL 100 MMOL/L (98-107); CHOLESTEROL LEVEL 206 MG/DL (<200); CHOLESTEROL RISK RATIO 7.49 (<5); CREATININE FOR GFR 0.62 MG/DL (0.55-1.30); GLOMERULAR FILTRATION RATE > 60.0 (>51); GLUCOSE, FASTING 132 MG/DL (60-100); HDL CHOLESTEROL 27.5 MG/DL (>40); LDL CHOLESTEROL 118.5 MG/DL (<100); MAGNESIUM LEVEL 1.6 MG/DL (1.8-2.4); NON-HDL-C 179 MG/DL; POTASSIUM SERUM 4.3 MMOL/L (3.5-5.1); SODIUM LEVEL 138 MMOL/L (136-145); TOTAL PROTEIN 8.2 G/DL (5.7-8.2); TRIGLYCERIDES LEVEL 300 MG/DL (<150)
[2022-05-23 19:04] LABS: HEMOGLOBIN A1c 7.3 % (4.0-6.0)
== END ==
LOC: M WUC 10:41
PROVIDERS: ATTEND Nurse Practitioner Adult Health
DX: E78.2 Mixed hyperlipidemia (principal); E11.9 Type 2 diabetes mellitus without complications; K75.81 Nonalcoholic steatohepatitis (NASH); K21.9 Gastro-esophageal reflux disease without esophagitis; E55.9 Vitamin D deficiency, unspecified; M10.9 Gout, unspecified

== ENCOUNTER → 2022-06-13 | Outpatient (CLI) | payer OTHER | LOC: M PLAIMG 11:51 | PROVIDERS: ATTEND Internal Medicine Pulmonary Disease | DX: J45.40 Moderate persistent asthma, uncomplicated (principal) ==

== ENCOUNTER → 2022-08-07 | Outpatient (CLI) | payer OTHER ==
[~2022-08-07] MED LIST changes: +TAMO20TA8 PO
== END ==
LOC: M PLAIMG 16:14
PROVIDERS: ATTEND Physician Assistant
DX: M25.552 Pain in left hip (principal)

== ENCOUNTER → 2022-08-14 | Outpatient (CLI) | payer BC, OTHER | LOC: M CARPUL 14:28 | PROVIDERS: ATTEND Nurse Practitioner Adult Health | DX: I35.9 Nonrheumatic aortic valve disorder, unspecified (principal) ==

== ENCOUNTER → 2022-09-27 | Outpatient (CLI) | payer OTHER | LOC: M WHC 13:40 | PROVIDERS: ATTEND Internal Medicine Medical Oncology | DX: C50.919 Malignant neoplasm of unspecified site of unspecified female breast (principal) ==

== ENCOUNTER → 2022-11-13 | Outpatient (REF) | payer OTHER | LOC: M SFHCPLAZ 13:17 | PROVIDERS: ATTEND Nurse Practitioner Adult Health | DX: Z53.9 Procedure and treatment not carried out, unspecified reason (principal) ==

== ENCOUNTER → 2022-11-15 | Outpatient (REF) | payer OTHER ==
[2022-11-15 11:50] LABS: HEMOGLOBIN A1c 6.4 % (4.0-6.0)
[2022-11-15 12:05] LABS: URIC ACID 6.3 MG/DL (3.1-7.8)
[2022-11-15 12:09] LABS: ALBUMIN 4.3 G/DL (3.2-5.2); ALKALINE PHOSPHATASE 95 U/L (46-116); ALT/SGPT 91 U/L (7.0-40); AST/SGOT 120 U/L (<34); BILIRUBIN,TOTAL 0.5 MG/DL (0.3-1.2); BLOOD UREA NITROGEN 16 MG/DL (9-23); CALCIUM LEVEL 9.7 MG/DL (8.5-10.1); CARBON DIOXIDE LEVEL 30 MMOL/L (20-31); CHLORIDE LEVEL 104 MMOL/L (98-107); CHOLESTEROL LEVEL 150 MG/DL (<200); CHOLESTEROL RISK RATIO 4.76 (<5); GLOMERULAR FILTRATION RATE > 60.0 (>51); GLUCOSE, FASTING 119 MG/DL (60-100); HDL CHOLESTEROL 31.5 MG/DL (>40); LDL CHOLESTEROL 84.1 MG/DL (<100); MAGNESIUM LEVEL 1.8 MG/DL (1.8-2.4); NON-HDL-C 118.5 MG/DL; POTASSIUM SERUM 4.8 MMOL/L (3.5-5.1); SODIUM LEVEL 142 MMOL/L (136-145); TOTAL 25(OH) VITAMIN D 28.5 NG/ML (20.0-100.0); TOTAL PROTEIN 7.5 G/DL (5.7-8.2); TRIGLYCERIDES LEVEL 172 MG/DL (<150)
== END ==
LOC: M SFHCPLAZ 08:46
PROVIDERS: ATTEND Nurse Practitioner Adult Health
DX: E78.2 Mixed hyperlipidemia (principal); E11.9 Type 2 diabetes mellitus without complications; K21.9 Gastro-esophageal reflux disease without esophagitis; M10.9 Gout, unspecified; E55.9 Vitamin D deficiency, unspecified

== ENCOUNTER → 2022-11-27 | Outpatient (CLI) | payer OTHER | LOC: M PLALAB 15:49 | PROVIDERS: ATTEND Nurse Practitioner Adult Health | DX: Z20.2 Contact with and (suspected) exposure to infections with a predominantly sexual mode of transmission (principal) ==

== ENCOUNTER → 2022-12-06 | Outpatient (CLI) | payer OTHER | LOC: M WHC 08:19 | PROVIDERS: ATTEND Nurse Practitioner Adult Health | DX: K75.81 Nonalcoholic steatohepatitis (NASH) (principal) ==

== ENCOUNTER → 2022-12-26 | Outpatient (CLI) | payer OTHER ==
[2022-12-26 16:46] LABS: BASO # 0.1 10^3/uL (0.0-0.2); BASO % 0.9 % (0.0-1.0); EOS # 0.1 10^3/uL (0.0-0.5); EOS % 1.8 % (0.0-3.0); HEMATOCRIT 38.6 % (36.0-47.0); HEMOGLOBIN 12.8 g/dl (12.0-15.5); LYMPH # 1.4 10^3/uL (1.5-5.0); LYMPH % 24.3 % (24.0-44.0); MEAN CORPUSCULAR HEMOGLOBIN 31.8 pg (27.0-33.0); MEAN CORPUSCULAR HGB CONC 33.2 g/dl (32.0-36.5); MONO # 0.4 10^3/uL (0.0-0.8); MONO % 6.4 % (2.0-8.0); NEUTROPHILS # 3.7 10^3/uL (1.5-8.5); NEUTROPHILS % 66.1 % (36.0-66.0); PLATELET COUNT, AUTOMATED 178 10^3/uL (150-450); RED BLOOD COUNT 4.02 10^6/uL (4.00-5.40); WHITE BLOOD COUNT 5.6 10^3/uL (4.0-10.0)
[2022-12-26 17:20] LABS: ALKALINE PHOSPHATASE 89 U/L (46-116); ALT/SGPT 66 U/L (7.0-40); AST/SGOT 56 U/L (<34); BILIRUBIN,TOTAL 0.3 MG/DL (0.3-1.2); BLOOD UREA NITROGEN 13 MG/DL (9-23); CARBON DIOXIDE LEVEL 26 MMOL/L (20-31); CHLORIDE LEVEL 105 MMOL/L (98-107); CREATININE FOR GFR 0.58 MG/DL (0.55-1.30); FERRITIN 34.6 NG/ML (7.3-270.7); GLOMERULAR FILTRATION RATE > 60.0 (>51); GLUCOSE, FASTING 127 MG/DL (60-100); POTASSIUM SERUM 4.3 MMOL/L (3.5-5.1); SODIUM LEVEL 141 MMOL/L (136-145)
== END ==
LOC: M WUC 11:17
PROVIDERS: ATTEND Internal Medicine Medical Oncology
DX: C50.919 Malignant neoplasm of unspecified site of unspecified female breast (principal)

== ENCOUNTER → 2023-04-23 | Outpatient (CLI) | payer OTHER | LOC: M WHC 14:31 | PROVIDERS: ATTEND Nurse Practitioner Women's Health | DX: D05.11 Intraductal carcinoma in situ of right breast (principal) ==

== ENCOUNTER → 2023-05-11 | Outpatient (REF) | payer OTHER ==
[2023-05-11 11:37] LABS: HEMATOCRIT 39.7 % (36.0-47.0); MEAN CORPUSCULAR HEMOGLOBIN 30.2 pg (27.0-33.0); MEAN CORPUSCULAR HGB CONC 32.7 g/dl (32.0-36.5); MEAN CORPUSCULAR VOLUME 92.3 fl (80.0-96.0); PLATELET COUNT, AUTOMATED 220 10^3/uL (150-450); WHITE BLOOD COUNT 5.6 10^3/uL (4.0-10.0)
[2023-05-11 11:55] LABS: HEMOGLOBIN A1c 6.4 % (4.0-6.0)
[2023-05-11 12:06] LABS: URIC ACID 5.4 MG/DL (3.1-7.8)
[2023-05-11 12:09] LABS: ALKALINE PHOSPHATASE 87 U/L (46-116); ALT/SGPT 79 U/L (7.0-40); AST/SGOT 84 U/L (<34); BILIRUBIN,TOTAL 0.4 MG/DL (0.3-1.2); BLOOD UREA NITROGEN 16 MG/DL (9-23); CALCIUM LEVEL 9.4 MG/DL (8.5-10.1); CARBON DIOXIDE LEVEL 27 MMOL/L (20-31); CHLORIDE LEVEL 106 MMOL/L (98-107); CHOLESTEROL LEVEL 161 MG/DL (<200); CHOLESTEROL RISK RATIO 5.19 (<5); GLOMERULAR FILTRATION RATE > 60.0 (>51); GLUCOSE, FASTING 111 MG/DL (60-100); LDL CHOLESTEROL 96.4 MG/DL (<100); MAGNESIUM LEVEL 1.7 MG/DL (1.8-2.4); POTASSIUM SERUM 4.6 MMOL/L (3.5-5.1); SODIUM LEVEL 139 MMOL/L (136-145); TOTAL PROTEIN 7.5 G/DL (5.7-8.2); TRIGLYCERIDES LEVEL 168 MG/DL (<150)
[2023-05-11 12:10] LABS: TOTAL 25(OH) VITAMIN D 23.2 NG/ML (20.0-100.0)
== END ==
LOC: M SFHCPLAZ 08:50
PROVIDERS: ATTEND Nurse Practitioner Adult Health
DX: E78.2 Mixed hyperlipidemia (principal); I10 Essential (primary) hypertension; E11.9 Type 2 diabetes mellitus without complications; K75.81 Nonalcoholic steatohepatitis (NASH); K21.9 Gastro-esophageal reflux disease without esophagitis; M10.9 Gout, unspecified; E55.9 Vitamin D deficiency, unspecified

== ENCOUNTER → 2023-06-26 | Outpatient (REF) | payer OTHER ==
[2023-06-26 21:04] LABS: BASO # 0.1 10^3/uL (0.0-0.2); BASO % 0.8 % (0.0-1.0); EOS # 0.1 10^3/uL (0.0-0.5); EOS % 0.8 % (0.0-3.0); HEMATOCRIT 36.3 % (36.0-47.0); HEMOGLOBIN 11.7 g/dl (12.0-15.5); LYMPH # 1.7 10^3/uL (1.5-5.0); LYMPH % 23.9 % (24.0-44.0); MEAN CORPUSCULAR HEMOGLOBIN 29.9 pg (27.0-33.0); MEAN CORPUSCULAR HGB CONC 32.2 g/dl (32.0-36.5); MEAN CORPUSCULAR VOLUME 92.8 fl (80.0-96.0); MONO # 0.4 10^3/uL (0.0-0.8); MONO % 5.3 % (2.0-8.0); NEUTROPHILS # 4.9 10^3/uL (1.5-8.5); NEUTROPHILS % 68.9 % (36.0-66.0); PLATELET COUNT, AUTOMATED 225 10^3/uL (150-450); RED BLOOD COUNT 3.91 10^6/uL (4.00-5.40); WHITE BLOOD COUNT 7.1 10^3/uL (4.0-10.0)
[2023-06-26 21:31] LABS: ALKALINE PHOSPHATASE 91 U/L (46-116); ALT/SGPT 52 U/L (7.0-40); AST/SGOT 49 U/L (<34); BILIRUBIN,TOTAL 0.3 MG/DL (0.3-1.2); BLOOD UREA NITROGEN 14 MG/DL (9-23); CALCIUM LEVEL 8.9 MG/DL (8.5-10.1); CARBON DIOXIDE LEVEL 27 MMOL/L (20-31); CHLORIDE LEVEL 106 MMOL/L (98-107); CREATININE FOR GFR 0.66 MG/DL (0.55-1.30); GLOMERULAR FILTRATION RATE > 60.0 (>51); GLUCOSE, FASTING 141 MG/DL (60-100); IRON (FE) 53 UG/DL (50-170); PERCENT SATURATION 11.3 % (13.2-45.0); POTASSIUM SERUM 4.2 MMOL/L (3.5-5.1); SODIUM LEVEL 137 MMOL/L (136-145); TOTAL IRON BINDING CAPACITY 467 UG/DL (250-425); TOTAL PROTEIN 7.3 G/DL (5.7-8.2)
[2023-06-26 21:32] LABS: FERRITIN 11.9 NG/ML (7.3-270.7); FOLATE > 24.00 NG/ML (>5.4); VITAMIN B12 LEVEL 266 PG/ML (211-911)
== END ==
LOC: M LAB REF 20:40
PROVIDERS: ATTEND Internal Medicine Medical Oncology
DX: D50.9 Iron deficiency anemia, unspecified (principal)

== ENCOUNTER → 2023-12-28 | Outpatient (REF) | payer OTHER ==
[~2023-12-28] MED LIST changes: +EZET10TA21
[2023-12-28 09:07] LABS: URIC ACID 6.4 MG/DL (3.1-7.8)
[2023-12-28 09:10] LABS: CHOLESTEROL LEVEL 169 MG/DL (<200); CHOLESTEROL RISK RATIO 4.56 (<5); MAGNESIUM LEVEL 1.9 MG/DL (1.8-2.4); TRIGLYCERIDES LEVEL 200 MG/DL (<150)
[2023-12-28 09:13] LABS: TOTAL 25(OH) VITAMIN D 42.9 NG/ML (20.0-100.0)
[2023-12-28 09:26] LABS: HEMOGLOBIN A1c 5.8 % (4.0-6.0)
[2023-12-28 09:34] LABS: CREATININE, URINE 105.6 MG/DL; MAU/CREAT RATIO 247.1 MCG/MG (0.0-30.0)
== END ==
LOC: M LAB REF 08:15
PROVIDERS: ATTEND Nurse Practitioner Adult Health
DX: K75.81 Nonalcoholic steatohepatitis (NASH) (principal); I10 Essential (primary) hypertension; E78.2 Mixed hyperlipidemia; E11.9 Type 2 diabetes mellitus without complications; E55.9 Vitamin D deficiency, unspecified; K21.9 Gastro-esophageal reflux disease without esophagitis; M10.9 Gout, unspecified

== ENCOUNTER → 2024-03-01 | Outpatient (CLI) | payer OTHER | LOC: M LAB 08:54 | PROVIDERS: ATTEND Internal Medicine Gastroenterology | DX: K75.81 Nonalcoholic steatohepatitis (NASH) (principal); D50.9 Iron deficiency anemia, unspecified ==

== ENCOUNTER → 2024-03-01 | Outpatient (CLI) | payer OTHER ==
[2024-03-01 10:10] LABS: CREATININE, URINE 58.3 MG/DL; MAU/CREAT RATIO 8.5 MCG/MG (0.0-30.0)
== END ==
LOC: M LAB 08:55
PROVIDERS: ATTEND Nurse Practitioner Adult Health
DX: E11.9 Type 2 diabetes mellitus without complications (principal)

== ENCOUNTER 2024-05-12 08:01 | Day surgery (SDC) | payer OTHER ==
[~2024-05-12] VITALS: Ht 170.2 cm; Wt 80.7 kg
[~2024-05-12 08:01] MED LIST changes: -EZET10TA21; +EZET10TA21 PO; +FLUT12AE3 INH; +GLIP10TA18 PO; +OMEP-173 PO; +fentaNYL 100 MCG/2 ML INJECTION As Ordered ONE; +propofoL 500 MG/50 ML VIAL As Ordered ONE
[2024-05-12] MEDS ORDERED: LIDOCAINE 2% 100MG/5ML SDV (FOR ANES.) As Ordered ONE (08:50)
[2024-05-12 09:41] VITALS: BP 178/84; O2SAT 99
== END 2024-05-12 09:46 | disposition home or self-care (01) ==
LOC: M OPP 08:01
PROVIDERS: ATTEND Internal Medicine Gastroenterology
DX: D50.9 Iron deficiency anemia, unspecified (principal); D12.3 Benign neoplasm of transverse colon; D12.4 Benign neoplasm of descending colon; K57.30 Diverticulosis of large intestine without perforation or abscess without bleeding; K64.8 Other hemorrhoids; Z80.0 Family history of malignant neoplasm of digestive organs; K22.89 Other specified disease of esophagus; K20.90 Esophagitis, unspecified without bleeding; Z88.1 Allergy status to other antibiotic agents; Z88.8 Allergy status to other drugs, medicaments and biological substances; Z79.82 Long term (current) use of aspirin; Z79.84 Long term (current) use of oral hypoglycemic drugs; Z79.85 Long-term (current) use of injectable non-insulin antidiabetic drugs; Z79.899 Other long term (current) drug therapy
CPT/HCPCS: 43239; 45385; 88305; J3010

== ENCOUNTER → 2024-06-11 | Outpatient (CLI) | payer OTHER ==
[~2024-06-11] MED LIST changes: -fentaNYL 100 MCG/2 ML INJECTION As Ordered ONE; -propofoL 500 MG/50 ML VIAL As Ordered ONE
== END ==
LOC: M WHC 14:55
PROVIDERS: ATTEND Nurse Practitioner Adult Health
DX: D05.11 Intraductal carcinoma in situ of right breast (principal)

== ENCOUNTER → 2024-07-26 | Outpatient (CLI) | payer OTHER ==
[~2024-07-26] MED LIST changes: +GLIP-318 PO; +GLIP-320 PO; -GLIP10TA18 PO; -GLIP5TAB20 PO
[2024-07-26 11:35] LABS: HEMOGLOBIN A1c 5.6 % (4.0-6.0)
[2024-07-26 11:39] LABS: URIC ACID 6.2 MG/DL (3.1-7.8)
[2024-07-26 11:41] LABS: CHOLESTEROL RISK RATIO 4.48 (<5); CREATININE, URINE 94.5 MG/DL; HDL CHOLESTEROL 34.8 MG/DL (>40); LDL CHOLESTEROL 100.2 MG/DL (<100); MAGNESIUM LEVEL 1.9 MG/DL (1.8-2.4); MAU/CREAT RATIO 13.7 MCG/MG (0.0-30.0); NON-HDL-C 121.2 MG/DL
[2024-07-26 11:44] LABS: TOTAL 25(OH) VITAMIN D 56.4 NG/ML (20.0-100.0)
== END ==
LOC: M LAB 08:09 → M PLALAB 08:09
PROVIDERS: ATTEND Nurse Practitioner Adult Health
DX: E55.9 Vitamin D deficiency, unspecified (principal)

== ENCOUNTER → 2024-12-25 | Outpatient (REF) | payer OTHER ==
[~2024-12-25] MED LIST changes: -EZET10TA21 PO; +EZET10TA57 PO; +LOSA100T46; +OXYC-517 PO
[2024-12-25 15:08] LABS: ALT/SGPT 21 U/L (7.0-40); AST/SGOT 26 U/L (<34); CALCIUM LEVEL 9.4 MG/DL (8.3-10.6); CARBON DIOXIDE LEVEL 27 MMOL/L (20-31); CHLORIDE LEVEL 104 MMOL/L (98-107); CHOLESTEROL LEVEL 140 MG/DL (<200); CHOLESTEROL RISK RATIO 3.33 (<5); CREATININE FOR GFR 0.53 MG/DL (0.55-1.30); GLOMERULAR FILTRATION RATE > 90.0 (>45); LDL CHOLESTEROL 75.2 MG/DL (<100); MAGNESIUM LEVEL 2.2 MG/DL (1.8-2.4); NON-HDL-C 98.0 MG/DL; POTASSIUM SERUM 4.7 MMOL/L (3.5-5.1); SODIUM LEVEL 142 MMOL/L (136-145); TRIGLYCERIDES LEVEL 114 MG/DL (<150)
[2024-12-25 15:10] LABS: TOTAL 25(OH) VITAMIN D 59.4 NG/ML (20.0-100.0)
[2024-12-25 15:12] LABS: PLATELET COUNT, AUTOMATED 253 10^3/uL (150-450)
[2024-12-25 15:21] LABS: ESTIMATED AVERAGE GLUCOSE 120.0 MG/DL (60-110)
== END ==
LOC: M SFHCCLAY 08:45
PROVIDERS: ATTEND Nurse Practitioner Adult Health
DX: I10 Essential (primary) hypertension (principal); K75.81 Nonalcoholic steatohepatitis (NASH); K21.9 Gastro-esophageal reflux disease without esophagitis; M10.9 Gout, unspecified; E55.9 Vitamin D deficiency, unspecified; E78.2 Mixed hyperlipidemia; E11.9 Type 2 diabetes mellitus without complications; D50.9 Iron deficiency anemia, unspecified

== ENCOUNTER → 2024-12-25 | Outpatient (REF) | payer OTHER ==
[~2024-12-25] MED LIST changes: -LOSA100T46; -OXYC-517 PO
[2024-12-25 15:07] LABS: ALT/SGPT 20 U/L (7.0-40); AST/SGOT 26 U/L (<34); CALCIUM LEVEL 9.5 MG/DL (8.3-10.6); CARBON DIOXIDE LEVEL 26 MMOL/L (20-31); CHLORIDE LEVEL 105 MMOL/L (98-107); CREATININE FOR GFR 0.54 MG/DL (0.55-1.30); GLOMERULAR FILTRATION RATE > 90.0 (>45); POTASSIUM SERUM 4.7 MMOL/L (3.5-5.1); SODIUM LEVEL 144 MMOL/L (136-145)
[2024-12-25 15:12] LABS: BASO # 0.1 10^3/uL (0.0-0.2); BASO % 0.7 % (0.0-1.0); EOS # 0.1 10^3/uL (0.0-0.5); EOS % 1.4 % (0.0-3.0); LYMPH # 1.5 10^3/uL (1.5-5.0); LYMPH % 21.8 % (24.0-44.0); MONO # 0.4 10^3/uL (0.0-0.8); MONO % 5.7 % (2.0-8.0); NEUTROPHILS # 4.9 10^3/uL (1.5-8.5); NEUTROPHILS % 70.1 % (36.0-66.0); PLATELET COUNT, AUTOMATED 254 10^3/uL (150-450)
== END ==
LOC: M LAB REF 12:13
PROVIDERS: ATTEND Internal Medicine Medical Oncology
DX: D50.9 Iron deficiency anemia, unspecified (principal)

== ENCOUNTER → 2025-01-20 | Outpatient (CLI) | payer OTHER ==
[~2025-01-20] MED LIST changes: +ISOVUE-370 76% 100 ML VIAL As Ordered ONE; +LOSA100T46; +OXYC-517 PO
== END ==
LOC: M RAD 16:57
PROVIDERS: ATTEND Internal Medicine Medical Oncology
DX: D05.11 Intraductal carcinoma in situ of right breast (principal); K57.90 Diverticulosis of intestine, part unspecified, without perforation or abscess without bleeding; I70.0 Atherosclerosis of aorta; M47.815 Spondylosis without myelopathy or radiculopathy, thoracolumbar region; M41.9 Scoliosis, unspecified; M16.0 Bilateral primary osteoarthritis of hip; R91.8 Other nonspecific abnormal finding of lung field; R59.0 Localized enlarged lymph nodes
CPT/HCPCS: 71260; 74177; Q9967

== ENCOUNTER → 2025-01-27 | Outpatient (REF) | payer OTHER ==
[~2025-01-27] MED LIST changes: -ISOVUE-370 76% 100 ML VIAL As Ordered ONE
== END ==
LOC: M SFHCPLAZ 11:11
PROVIDERS: ATTEND Nurse Practitioner Adult Health
DX: J02.9 Acute pharyngitis, unspecified (principal)

== ENCOUNTER → 2025-02-03 | Outpatient (CLI) | payer OTHER ==
[~2025-02-03] MED LIST changes: +AMOX875T2 PO; +FLUC-1 PO; +MAGICMW SSP; +MELO7.5T35 PO; +ONDA-84 PO; +SENN-186 PO; +VALA500T5 PO
== END ==
LOC: M PLARAD 15:06
PROVIDERS: ATTEND Student in an Organized Health Care Education/Training Program
DX: C50.811 Malignant neoplasm of overlapping sites of right female breast (principal)
CPT/HCPCS: 78815; A9552

== ENCOUNTER 2025-02-04 06:10 | Day surgery (SDC) | payer OTHER ==
[~2025-02-04] VITALS: Ht 170.2 cm; Wt 74.1 kg
[~2025-02-04 06:10] MED LIST changes: -AMOX875T2 PO; -FLUC-1 PO; -MAGICMW SSP; -MELO7.5T35 PO; -ONDA-84 PO; -SENN-186 PO; -VALA500T5 PO
[2025-02-04] MEDS ORDERED: LR 1,000 ML IV SCH (06:15)
[2025-02-04] MEDS ORDERED: ONDANSETRON 4MG/2ML VIAL As Ordered ONE (06:55)
[2025-02-04] MEDS ORDERED: dexAMETHasone 4 MG/ML 1 ML VIAL As Ordered ONE (06:55)
[2025-02-04] MEDS ORDERED: ROCURONIUM BROMIDE 50MG/5ML VIAL As Ordered ONE (06:55)
[2025-02-04] MEDS ORDERED: LIDOCAINE 2% 100 MG/5 ML SDV (FOR ANES.) As Ordered ONE (06:55)
[2025-02-04] MEDS ORDERED: SUGAMMADEX SODIUM 500 MG/5 ML VIAL As Ordered ONE (06:55)
[2025-02-04] MEDS ORDERED: MIDAZOLAM INJ 2 MG/2 ML VIAL As Ordered ONE (06:56)
[2025-02-04] MEDS: LIDOCAINE PRES-FREE 2% 10 ML AMP INH ONE (07:15)
[2025-02-04] MEDS: ALBUTEROL SULFATE 2.5 MG/0.5 ML INH CONCENTRATE NEB SOLN INH ONE (07:15)
[2025-02-04] MEDS: CETACAINE SPRAY 5 GM As Ordered ONE (07:47)
[2025-02-04] MEDS: EPINEPHrine 1 MG/10 ML SYRINGE 1.5IN As Ordered ONE (08:01)
[2025-02-04] MEDS: THROMBIN 5,000 UNITS VIAL As Ordered ONE (08:12)
[2025-02-04] MEDS ORDERED: MEPERIDINE 25 MG/ML 1 ML VIAL IV PRN (08:25)
[2025-02-04] MEDS ORDERED: HYDROMORPHONE HCL 0.5 MG/0.5 ML SYRINGE IV PRN (08:25)
[2025-02-04] MEDS ORDERED: ONDANSETRON 4MG/2ML VIAL IV PRN (08:25)
[2025-02-04 09:23] VITALS: BP 137/75; TEMP 98.2; O2SAT 93
[2025-02-06] MEDS ORDERED: VALA500T5 PO (08:37)
[2025-02-06] MEDS ORDERED: FLUC-1 PO (08:37)
[2025-02-06] MEDS ORDERED: ONDA-84 PO (08:37)
[2025-02-06] MEDS ORDERED: AMOX875T2 PO (08:37)
[2025-02-06] MEDS ORDERED: MAGICMW SSP (08:37)
[2025-02-11] MEDS ORDERED: SENN-186 PO (14:38)
[2025-02-11] MEDS ORDERED: MELO7.5T35 PO (15:08)
[2025-03-02] MEDS ORDERED: OXYC-517 PO (11:57)
== END 2025-02-04 09:42 | disposition home or self-care (01) ==
LOC: M SDC 06:10
PROVIDERS: ATTEND Internal Medicine Pulmonary Disease
DX: C34.11 Malignant neoplasm of upper lobe, right bronchus or lung (principal); C77.1 Secondary and unspecified malignant neoplasm of intrathoracic lymph nodes; I10 Essential (primary) hypertension; E11.9 Type 2 diabetes mellitus without complications; E78.00 Pure hypercholesterolemia, unspecified; J45.909 Unspecified asthma, uncomplicated; Z85.3 Personal history of malignant neoplasm of breast; Z85.828 Personal history of other malignant neoplasm of skin; Z79.899 Other long term (current) drug therapy; Z79.82 Long term (current) use of aspirin; Z79.84 Long term (current) use of oral hypoglycemic drugs; Z92.3 Personal history of irradiation; Z79.85 Long-term (current) use of injectable non-insulin antidiabetic drugs; M10.9 Gout, unspecified; K21.9 Gastro-esophageal reflux disease without esophagitis; Z88.8 Allergy status to other drugs, medicaments and biological substances
CPT/HCPCS: 31624; 31627; 31628; 31652; 71045; 76000; 87070; 87102; 87116; 87205; 87206; 88108; 88173; 88305; 88313; 93005; J0168; J1100; J2250; J2405; J3010

== ENCOUNTER → 2025-02-11 | Outpatient (CLI) | payer OTHER ==
[~2025-02-11] VITALS: Ht 170.2 cm; Wt 72.0 kg
[~2025-02-11] MED LIST changes: +AMOX875T2 PO; +FLUC-1 PO; +MAGICMW SSP; +MELO7.5T35 PO; +ONDA-84 PO; +SENN-186 PO; +VALA500T5 PO
[2025-02-11 14:41] VITALS: BP 149/93; O2SAT 96
== END ==
LOC: M PAL 14:15
PROVIDERS: ATTEND Physician Assistant
DX: Z51.5 Encounter for palliative care (principal); C34.90 Malignant neoplasm of unspecified part of unspecified bronchus or lung; C78.7 Secondary malignant neoplasm of liver and intrahepatic bile duct; C77.3 Secondary and unspecified malignant neoplasm of axilla and upper limb lymph nodes; Z79.891 Long term (current) use of opiate analgesic; Z86.006 Personal history of melanoma in-situ; J44.9 Chronic obstructive pulmonary disease, unspecified; E78.5 Hyperlipidemia, unspecified; K75.81 Nonalcoholic steatohepatitis (NASH); I35.0 Nonrheumatic aortic (valve) stenosis; Z88.6 Allergy status to analgesic agent; Z88.1 Allergy status to other antibiotic agents; Z79.899 Other long term (current) drug therapy; Z79.82 Long term (current) use of aspirin; Z79.52 Long term (current) use of systemic steroids

== ENCOUNTER → 2025-02-21 | Outpatient (CLI) | payer OTHER ==
[~2025-02-21] VITALS: Ht 170.2 cm; Wt 72.3 kg
[~2025-02-21] MED LIST changes: +SODIUM CHLORIDE 0.9% INJ 10 ML SYR IV PRN
[2025-02-21 12:45] VITALS: TEMP 97.4
[2025-02-21] MEDS: ceFAZolin SODIUM 2 GM in DEXTROSE 5% (D5W) ADV/MINI-BAG 50 ML IV ONE (13:14)
[2025-02-21] MEDS: NS (Normal Saline) 0.9% 1,000 ML IV SCH (13:14)
[2025-02-21] MEDS: MIDAZOLAM INJ 2 MG/2 ML VIAL IV PRN (14:49)
[2025-02-21] MEDS: LIDOCAINE 1% MDV 20 ML VIAL SC SCH (15:05)
[2025-02-21 15:30] VITALS: BP 133/69; O2SAT 97
== END ==
LOC: M IRPRO 12:26
PROVIDERS: ATTEND Student in an Organized Health Care Education/Training Program
DX: C34.90 Malignant neoplasm of unspecified part of unspecified bronchus or lung (principal)
CPT/HCPCS: 36561; 76937; 99152; J0688; J1642; J2250; J3010

== ENCOUNTER → 2025-02-25 | Outpatient (CLI) | payer OTHER ==
[~2025-02-25] MED LIST changes: -SODIUM CHLORIDE 0.9% INJ 10 ML SYR IV PRN
== END ==
LOC: M PAL 13:46
PROVIDERS: ATTEND Physician Assistant
DX: Z51.5 Encounter for palliative care (principal); C34.91 Malignant neoplasm of unspecified part of right bronchus or lung; C77.0 Secondary and unspecified malignant neoplasm of lymph nodes of head, face and neck; C78.7 Secondary malignant neoplasm of liver and intrahepatic bile duct; Z79.891 Long term (current) use of opiate analgesic; Z88.6 Allergy status to analgesic agent; Z88.1 Allergy status to other antibiotic agents; Z79.82 Long term (current) use of aspirin; Z79.899 Other long term (current) drug therapy; Z79.83 Long term (current) use of bisphosphonates

== ENCOUNTER → 2025-03-19 | Outpatient (CLI) | payer OTHER ==
[~2025-03-19] MED LIST changes: +LIDO30CR18 TOP; +MIRA3350 PO; +PROHANCE 279.3MG/ML 15ML VIAL As Ordered ONE
== END ==
LOC: M RAD 09:05
PROVIDERS: ATTEND Student in an Organized Health Care Education/Training Program
DX: C50.919 Malignant neoplasm of unspecified site of unspecified female breast (principal); R59.0 Localized enlarged lymph nodes; J34.1 Cyst and mucocele of nose and nasal sinus
CPT/HCPCS: 70553; A9579

== ENCOUNTER → 2025-03-26 | Outpatient (CLI) | payer OTHER ==
[~2025-03-26] VITALS: Ht 170.2 cm; Wt 74.8 kg
[~2025-03-26] MED LIST changes: -PROHANCE 279.3MG/ML 15ML VIAL As Ordered ONE
[2025-03-26 11:44] VITALS: BP 148/91; O2SAT 98
== END ==
LOC: M PAL 11:27
PROVIDERS: ATTEND Physician Assistant
DX: Z51.5 Encounter for palliative care (principal); C34.90 Malignant neoplasm of unspecified part of unspecified bronchus or lung; C78.7 Secondary malignant neoplasm of liver and intrahepatic bile duct; C77.3 Secondary and unspecified malignant neoplasm of axilla and upper limb lymph nodes; Z79.891 Long term (current) use of opiate analgesic; Z88.6 Allergy status to analgesic agent; Z88.1 Allergy status to other antibiotic agents; Z79.82 Long term (current) use of aspirin; Z79.899 Other long term (current) drug therapy; Z79.52 Long term (current) use of systemic steroids; Z79.83 Long term (current) use of bisphosphonates